=== PATIENT | male | born 1990 | race Native Hawaiian/Other Pacific Islander ===

== ENCOUNTER 2024-08-19 14:16 | Outpatient (AMB) | payer MEDICAID, SELFPAY ==
--- NOTE | 2024-08-19 14:24 | MHC.OFFVIS ---
Vital Signs 08/19/24 14:25 Height 6 ft Intake Visit Reasons: f/u Allergies Penicillins (PENICILLINS) Allergy (Unknown, Unverified 08/19/24 14:27) RASH Medication List - Last Reconciled 08/19/24 by Yuridia Maldonado CNP clonidine HCl 0.1 mg PO BID PRN famotidine 40 mg PO BEDTIME fluoxetine 10 mg PO QAM fluoxetine 40 mg PO DAILY meclizine 12.5 mg PO Q12H PRN omeprazole 40 mg PO QAM propranolol 20 mg PO BID HPI Comments Details: 34 yo man with Tourette syndrome and basilar migraine. He was here because his therapist (Teagan) from [employer] ([phone]: [phone]) wanted to have a consultation and scheduled this appointment. He did not let me know this was the reason for the appointment until it was the end of his appointment. I tried to called Teagan and it went to [employer]. She called the patient back on his cell phone a few minutes later. She has been working with him for over 2 years for anxiety, depression, and PTSD. He said he felt symptoms could be in his head, but could not describe this further. He was dealing with ongoing stress related to health, most recently related to GI issues and was following with GI for weight loss over period of 7 months. He was started on new medication by GI about 2 weeks ago for possible Crohn's, but did not remember the name. Teagan was questioning possibility of functional neurological disorder. Migraines were much better since increasing dose of propranolol. Headaches were less frequent and less severe. Dizziness was also better and was not happening as often. He had some mild dizziness and feeling of motion sickness yesterday after driving with his father. Sleep was okay. He was following with GI and was working with psychiatrist and therapist. [facility] Medical History (Updated 08/19/24 @ 14:33 by Yuridia Maldonado CNP) Orozco's esophagus Hernia Basilar migraine Depression Anxiety Tourette syndrome Review of Systems Const Denies chills, Denies daytime sleepiness, Denies difficulty sleeping, Denies fatigue, Denies fever(s), Denies frequent falls, Reports headache(s), Denies increased appetite, Denies poor appetite, Denies snoring, Denies weakness, Denies weight gain and Denies weight loss Eyes Denies loss of vision ENT Reports vertigo, Denies dizziness and Reports headache(s) Card Denies chest pain at rest, Denies chest pain with activity, Denies leg edema and Denies palpitations Resp Denies snoring GI Denies constipation, Denies heartburn, Denies diarrhea and Denies nausea Denies urinary frequency, Denies urinary incontinence and Denies urinary urgency Musc Denies abnormal gait, Denies numbness and Denies tingling Skin/Breast Denies dry skin and Denies rash Neuro Denies Abnormal speech present, Denies abnormal gait, Reports vertigo, Denies dizziness, Denies frequent falls, Reports headache(s), Denies lack of coordination, Denies loss of vision, Denies memory loss, Denies numbness, Denies restless legs, Denies seizure-like activity, Denies tingling, Denies paresthesias, Denies tremor(s) and Denies weakness Psych Reports anxiety, Reports depression, Denies auditory hallucinations, Denies memory loss, Denies visual hallucinations and Denies suicidal ideation Endo Denies fatigue and Denies palpitations Physical Exam Const Other: General Appearance:? normal, in no acute distress. Skin:? no rashes, no significant birthmarks. Heart:? S1, S2 normal, no murmurs. Lungs:? clear anteriorly and posteriorly. Extremities:? no edema. Psych:? alert, oriented, cognitive function intact, cooperative with exam. Neuro Other: Mental Status:?Normal attention, orientation, memory and affect.? Cranial Nerves:?Pupils are equal, round and reactive to light. External occular muscles are intact. Visual castro are full. Face is symmetrical. Facial sensations are normal. Tongue is midline. Palate elevates symmetrically. Shoulder shrugging is normal. Hearing to bedside conversation is normal. Motor Examination:?Normal muscle tone, bulk and strength,?Deep tendon reflexes are 2+,?Plantars are flexor.? Sensory Exam:?....? Coordination:?No ataxia,?no titubation.? Gait Exam: Within normal limits. Cerebellar Signs:?[id number] and [id number] is normal.? Extrapyramidal System:?No tremor, rigidity with normal facial expressions.? Pronator Drift:?Not present.? Involuntary Movements:?No tremors seen.?Few facial tics noted. Speech:?Normal.? Speech: No Abnormal speech present Assessment & Plan Assessment & Plan (1) Basilar migraine: Code(s): G43.109 - Migraine with aura, not intractable, without status migrainosus Category: Medical Plan: Continue propranolol 20mg 1 tablet twice a day Continue meclizine 12.5mg 1 tablet twice a day as needed for dizziness He was able to connect with his therapist (Teagan) of 2 years on his cell phone and she was on speaker phone for part of the visit. They were educated on this condition, its symptoms, and treatment. Symptoms had improved with medication and medication was continued. Stress can be trigger for migraine, and migraine it self can contribute to stress. He was advised to continue to work with therapist and practice stress management techniques. (2) Tourette syndrome: Code(s): F95.2 - Tourette's disorder Category: Medical Plan: . Plan . Coding Level of Care Code Est Pt Level 5 (33939) Diagnoses Basilar migraine G43.109 Tourette syndrome F95.2
--- OUTSIDE RECORDS SUMMARY | 2024-08-19 14:42 | XMS_ITS | Data Portability ---
Author Organization [facility], Main Office Address [address] [place] [address] Care Team Providers Care Occ Therapist Name Role Phone TELLO FRANKEL [facility] Referring Provider SUNDAR VALENZUELA Referring Provider [phone] DONAVON VILLAFUERTE Referring Provider ERICA CHAUDHARY Referring Provider [phone] SNEHA MUELLER Referring Provider [phone] JUAREZ GRIFFIN Referring Provider [phone] ALEXSANDER PLASENCIA Referring Provider [phone] LAVELL JIMENEZ Referring Provider MEENAKSHI THOMPSON Referring Provider [phone] Assessment No assessment recorded. Plan of Treatment Reminders Order Date Submit Date Provider Last Modified By Organization Details Last Modified Time Details Appointments None recorde d. Lab amylase + lipase, serum 2023 024 PRASHANT [facility] (Centralized Electronic Ordering - All Locations), Patient Can Go To The Location Of Their Choice, [address] 4 06:08:32 CBC w/ auto diff 2023 024 PRASHANT [facility], [address], [place], [address], 4 10:07:08 hepatic functio n panel, serum 2023 024 PRASHANT [facility], [address], [place], [address], 4 10:07:09 CMP, serum or plasma 2022 023 [facility], [address] [facility], [place], [address], 3 11:07:31 hepatit is C virus Ab, serum 2022 023 PRASHANT [facility], [address] [facility], [address], [place], [address], 3 13:09:45 Referral gastroe nterolo gist referra l - Six + months of midepig astric pain. Normal labs. Little help from PPI. 2023 PRASHANT Bowman MD, [address] [place], [address], 5 11:01:[address] [facility] [address] referra l - Recurre nt frontal and maxilla ry sinus pain. Not helped much by flonase and clariti n. [address] , [facility] [address], [place], [address], 4 09:08:42 Procedures None recorde d. Surgeries None recorde d. Imaging XR, sinuses , paranas al, less than 3 view - Recurre nt maxilla ry and frontal sinus pain not helped by flonase and clariti n. R/o obstruc tion 2022 023 [facility] [address], [place], [address], 3 13:20:12 Medication Orders esomepr azole magnesi um 40 mg capsule ,delaye d release 2023 024 [facility], [address] [place], [address], 14:40:51 omepraz ole 40 mg capsule ,delaye d release 2023 024 acennerazzo [facility], [address] [place], [address], 09:29:50 omepraz ole 40 mg capsule ,delaye d release 2023 024 PRASHANT [facility], [address] [place], [address], 13:13:48 Patient TargetsNo targets recorded. Patient Instructions Encounter Date Encounter Id Patient Instructions Last Modified By Organization Details Last Modified Time 12/06/2022 [id number] chronic sinusiti s: care instructions [email or web address] Not available 12/06/2022 10:39:44 03/22/2023 [id number] benign paroxysma l positional vertigo (bppv): care instructions pmadden Not available 03/22/2023 13:38:03 Medications (OTC , herbal therapies, supplements) reviewed and reconciled with patient and or caregiver, including potential side effects, drug interactions, instructions, and the consequences of not taking medication. Reviewed potential barriers to medication adherence, such as side effects from medication or cost of medication. 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 Not helped much by flonase and claritin. 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 Normal labs. Little help from PPI. Referring Physician: Tello Frankel, [facility], Encounter Date: 09/26/2023 Results Created Date Observation Date Name Description Value Unit Range Abnormal Flag Note LastModifiedBy Organization Detail LastModifiedTime 11/18/1911/20/2022 ALLER GEN, MOLD PANEL cladosporium herbarum <0.10 Refer ence range : Class 0 Unit: kU/L Not Available [facility] (Centralized Electronic Ordering - All Locations) Patient Can Go To The Location Of Their Choice, 11/20/2022 16:06:30 11/18/1911/20/2022 ALLER GEN, MOLD PANEL aspergillus fumigatus <0.10 Refer ence range : Class 0 Unit: kU/L Not Available [facility] (Centralized Electronic Ordering - All Locations) Patient Can Go To The Location Of Their Choice, 11/20/2022 16:06:30 11/18/1911/20/2022 ALLER GEN, MOLD PANEL mucor racemosus <0.10 Refer ence range : Class 0 Unit: kU/L Not Available [facility] (Centralized Electronic Ordering - All Locations) Patient Can Go To The Location Of Their Choice, 11/20/2022 16:06:30 11/18/1911/20/2022 ALLER GEN, MOLD PANEL ed albicans <0.10 Refer ence range : Class 0 Unit: kU/L Not Available [facility] (Centralized Electronic Ordering - All Locations) Patient Can Go To The Location Of Their Choice, 11/20/2022 16:06:30 11/18/1911/20/2022 ALLER GEN, MOLD PANEL alternaria tenuis <0.10 Refer ence range : Class 0 Unit: kU/L Not Available [facility] (Centralized Electronic Ordering - All Locations) Patient Can Go To The Location Of Their Choice, 11/20/2022 16:06:30 11/18/1911/20/2022 ALLER GEN, MOLD PANEL class description Commen t (NOTE ) Level s of Speci fic IgE Class Descr iptio n of Class ----- ----- ----- ----- ----- -- ----- ----- ----- ----- ----- < 0.10 0 Negat dc 0.10 - 0.31 0/I Equiv ocal/ Low 0.32 - 0.55 I Low 0.56 - 1.40 II Moder ate 1.41 - 3.90 III High 3.91 - 19.00 IV Very High 19.01 - 100.0 0 V Very High >100. 00 Very High Test perfo rmed by [facility], [address] [place] [address] Not Available [facility] (Centralized Electronic Ordering - All Locations) Patient Can Go To The Location Of Their Choice, [id number] 11/20/2022 16:06:30 01/20/2001/19/2023 COMPR EHENS DC METAB OLIC PANL glucose 81 mg/dL (70-99 ) Not Available [facility] (Centralized Electronic Ordering - All Locations) Patient Can Go To The Location Of Their Choice, [id number] 01/19/2023 11:07:31 01/20/20 23 01/19/2023 COMPR EHENS DC METAB OLIC PANL BUN 17 mg/dL (6-20) Not Available [facility] ([facility]ized [facility] Ordering - All Locations) Patient Can Go To The Location Of Their Choice, [id number] 01/19/2023 11:07:31 01/20/20 23 01/19/2023 COMPR EHENS DC METAB OLIC PANL creatinine 1.1 mg/dL (0.7-1 .2) Not Available [facility] (Centralized Electronic Ordering - All Locations) Patient Can Go To The Location Of Their Choice, [id number] 01/19/2023 11:07:31 01/20/20 23 01/19/2023 COMPR EHENS DC METAB OLIC PANL sodium 139 mmol/ L (133-1 45) Not Available [facility] (Centralized Electronic Ordering - All Locations) Patient Can Go To The Location Of Their Choice, [id number] 01/19/2023 11:07:31 01/20/20 23 01/19/2023 COMPR EHENS DC METAB OLIC PANL potassium 4.7 mmol/ L (3.6-5 .2) Not Available [facility] (Centralized Electronic Ordering - All Locations) Patient Can Go To The Location Of Their Choice, [id number] 01/19/2023 11:07:31 01/20/2001/19/2023 COMPR EHENS DC METAB OLIC PANL chloride 102 mmol/ L (98-10 7) Not Available [facility] ([facility]ized Electronic Ordering - All Locations) Patient Can Go To The Location Of Their Choice, [id number] 01/19/2023 11:07:31 01/20/2001/19/2023 COMPR EHENS DC METAB OLIC PANL bicarbonate 29 mmol/ L (22-29 ) Not Available [facility] (Centralized Electronic Ordering - All Locations) Patient Can Go To The Location Of Their Choice, 01/19/2023 11:07:31 01/20/2001/19/2023 COMPR EHENS DC METAB OLIC PANL anion gap 8 (4-17) Not Available [facility] ([facility]ized Electronic Ordering - All Locations) Patient Can Go To The Location Of Their Choice, [id number] 01/19/2023 11:07:31 01/20/2001/19/2023 COMPR EHENS DC METAB OLIC PANL albumin 4.6 gm/dL (3.4-4 .8) Not Available [facility] ([facility]ized Electronic Ordering - All Locations) Patient Can Go To The Location Of Their Choice, [id number] 01/19/2023 11:07:31 01/20/2001/19/2023 COMPR EHENS DC METAB OLIC PANL calcium 9.5 mg/dL (8.6-1 0.5) Not Available [facility] ([facility]ized [facility] Ordering - All Locations) Patient Can Go To The Location Of Their Choice, 01/19/2023 11:07:31 01/20/2001/19/2023 COMPR EHENS DC METAB OLIC PANL bilirubin,to izabela 0.4 mg/dL (0-1.2 ) Not Available [facility] ([facility]ized Electronic Ordering - All Locations) Patient Can Go To The Location Of Their Choice, 01/19/2023 11:07:31 01/20/2001/19/2023 COMPR EHENS DC METAB OLIC PANL total protein 6.8 gm/dL (6.2-8 .2) Not Available [facility] ([facility] Ordering - All Locations) Patient Can Go To The Location Of Their Choice, [id number] 01/19/2023 11:07:31 01/20/20 23 01/19/2023 COMPR EHENS DC METAB OLIC PANL Ag ratio 2.1 Not Available [facility] ([facility]ized Electronic Ordering - All Locations) Patient Can Go To The Location Of Their Choice, [id number] 01/19/2023 11:07:31 01/20/20 23 01/19/2023 COMPR EHENS DC METAB OLIC PANL AST 18 U/L (0-40) Not Available [facility] ([facility] Ordering - All Locations) Patient Can Go To The Location Of Their Choice, [id number] 01/19/2023 11:07:31 01/20/20 23 01/19/2023 COMPR EHENS DC METAB OLIC PANL alk phos 63 U/L (40-12 9) Not Available [facility] ([facility] Ordering - All Locations) Patient Can Go To The Location Of Their Choice, [id number] 01/19/2023 11:07:31 01/20/20 23 01/19/2023 COMPR EHENS DC METAB OLIC PANL ALT 28 U/L (0-41) Not Available [facility] ([facility]ized [facility] Ordering - All Locations) Patient Can Go To The Location Of Their Choice, [id number] 01/19/2023 11:07:31 01/20/20 23 01/19/2023 COMPR EHENS DC METAB OLIC PANL estimated GFR creatinine 88 mL/mi n/1.7 3_M2 Creat inine based estim ated glome rular filtr ation (eGFR ) in adult s is calcu lated using the Natio nal Kidne y Found ation recom sharmila d 2020 CKD-E PI equat ion. Estim ates GFR from serum creat inine , age and sex. Not Available [facility] (Centralized Electronic Ordering - All Locations) Patient Can Go To The Location Of Their Choice, [id number] 01/19/2023 11:07:31 01/20/20 23 01/20/2023 LYME AB W/REF MK lyme Ab w/reflex (neg) NEGAT DC NO ANTIB NANI TO BORRE LLIA BURGD ORFER I DETEC ANNABELLA. PATIE NTS IN EARLY STAGE S OF INFEC TION OR WHO WERE GIVEN EARLY ANTIB IOTIC TREAT MENT MAY NOT PRODU CE DETEC TABLE LEVEL S OF ANTIB NANI. THESE PATIE NTS WOULD BENEF IT FROM REPEA T TESTI NG IN 2 TO 4 WEEKS . Testi ng perfo rmed by the Bio-R ad BioPl ex 2200 multi plex flow immun oassa y syste m Not Available [facility] (Centralized Electronic Ordering - All Locations) Patient Can Go To The Location Of Their Choice, [id number] 01/20/2023 09:34:05 01/20/20 23 01/20/2023 ANTI- NUCLE AR ANTIB NANI SCREE N anti-nuclear antibody screen NEGATI VE (NOTE ) Negat dc <1:80 Borde rline 1:80 Posit dc >1:80 ICAP nomen rufustheather re: AC-0 For more infor jason meneses about Hep-2 cell patte rns use ANApa ttern s.org , the offic ial websi te for the Inter natio nal Conse nsus on Antin uclea r Antib nani (HENRIETTA) Patte rns (ICAP ). Test perfo rmed by [facility], [address], [place] [address] Not Available [facility] (Centralized Electronic Ordering - All Locations) Patient Can Go To The Location Of Their Choice, [id number] 01/20/2023 23:05:54 01/20/20 23 01/21/2023 ANTI- HEPAT ITIS C anti-hepatit is C (neg) Non React dc Refer ence range : Non React dc (NOTE ) HCV antib nani alone does not diffe renti ate betwe en previ ously resol jabari infec tion and activ e infec tion. Equiv ocal and React dc HCV antib nani resul ts shoul d be follo wed up with an HCV RNA test to suppo rt the diagn osis of activ e HCV infec tion. Test perfo rmed by [facility], [address], [place] [address] Not Available [facility] (Centralized Electronic Ordering - All Locations) Patient Can Go To The Location Of Their Choice, [id number] 01/21/2023 13:09:45 08/29/19 24 08/30/2023 CBC WITH DIFFE RENTI AL/PL ATELE T WBC 7.8 x10e3 /uL 3.4-10 .8 Not Available [facility] ([facility]) [address] [facility], [place], [address], 08/30/2023 10:07:08 08/29/19 24 08/30/2023 CBC WITH DIFFE RENTI AL/PL ATELE T RBC 5.35 x10e6 /uL 4.14-5 .80 Not Available [facility] ([facility]) [address] [facility], [place], [address], 08/30/2023 10:07:08 08/29/19 24 08/30/2023 CBC WITH DIFFE RENTI AL/PL ATELE T hemoglobin 16.8 g/dL 13.0-1 7.7 Not Available [facility] ([facility]) [address] [facility], [place], [address], 08/30/2023 10:07:08 08/29/19 24 08/30/2023 CBC WITH DIFFE RENTI AL/PL ATELE T hematocrit 49.3 % 37.5-5 1.0 Not Available [facility] ([facility]) [address] [facility], [place], [address], 08/30/2023 10:07:08 08/29/19 24 08/30/2023 CBC WITH DIFFE RENTI AL/PL ATELE T MCV 92 fL 79-97 Not Available [facility] ([facility]) [address] [facility], [place], [address], 08/30/2023 10:07:08 08/29/19 24 08/30/2023 CBC WITH DIFFE RENTI AL/PL ATELE T MCH 31.4 pg 26.6-3 3.0 Not Available [facility] ([facility]) [address] [facility], [place], [address], 08/30/2023 10:07:08 08/29/19 24 08/30/2023 CBC WITH DIFFE RENTI AL/PL ATELE T MCHC 34.1 g/dL 31.5-3 5.7 Not Available [facility] ([facility]) [address] [facility], [place], [address], 08/30/2023 10:07:08 08/29/19 24 08/30/2023 CBC WITH DIFFE RENTI AL/PL ATELE T RDW 12.9 % 11.6-1 5.4 Not Available [facility] ([facility]) [address] [facility], [place], [address], 08/30/2023 10:07:08 08/29/19 24 08/30/2023 CBC WITH DIFFE RENTI AL/PL ATELE T platelets 254 x10e3 /uL 150-45 0 Not Available [facility] ([facility]) [address] [facility], [place], [address], 08/30/2023 10:07:08 08/29/19 24 08/30/2023 CBC WITH DIFFE RENTI AL/PL ATELE T neutrophils 65 % not estab. Not Available [facility] ([facility]) [address] [facility], [place], [address], 08/30/2023 10:07:08 08/29/19 24 08/30/2023 CBC WITH DIFFE RENTI AL/PL ATELE T lymphs 24 % not estab. Not Available [facility] ([facility]) [address] [facility], [place], [address], 08/30/2023 10:07:08 08/29/19 24 08/30/2023 CBC WITH DIFFE RENTI AL/PL ATELE T monocytes 8 % not estab. Not Available [facility] ([facility]) [address] [facility], [place], [address], 08/30/2023 10:07:08 08/29/19 24 08/30/2023 CBC WITH DIFFE RENTI AL/PL ATELE T eos 2 % not estab. Not Available [facility] ([facility]) [address] [facility], [place], [address], 08/30/2023 10:07:08 08/29/19 24 08/30/2023 CBC WITH DIFFE RENTI AL/PL ATELE T basos 1 % not estab. Not Available [facility] ([facility]) [address] [place], [address], 08/30/2023 10:07:08 08/29/19 24 08/30/2023 CBC WITH DIFFE RENTI AL/PL ATELE T immature cells INVESTOR RELATIONS COORDINATOR Not Available [facility] ([facility]) [address] [place], [address], 08/30/2023 10:07:08 08/29/19 24 08/30/2023 CBC WITH DIFFE RENTI AL/PL ATELE T neutrophils (absolute) 5.0 x10e3 /uL 1.4-7. 0 Not Available [facility] ([facility]) [address] [place], [address], 08/30/2023 10:07:08 08/29/19 24 08/30/2023 CBC WITH DIFFE RENTI AL/PL ATELE T lymphs (absolute) 1.9 x10e3 /uL 0.7-3. 1 Not Available [facility] ([facility]) [address] [place], [address], 08/30/2023 10:07:08 08/29/19 24 08/30/2023 CBC WITH DIFFE RENTI AL/PL ATELE T monocytes(ab solute) 0.7 x10e3 /uL 0.1-0. 9 Not Available [facility] ([facility]) [address] [place], [address], 08/30/2023 10:07:08 08/29/19 24 08/30/2023 CBC WITH DIFFE RENTI AL/PL ATELE T eos (absolute) 0.2 x10e3 /uL 0.0-0. 4 Not Available [facility] ([facility]) [address] [place], [address], 08/30/2023 10:07:08 08/29/19 24 08/30/2023 CBC WITH DIFFE RENTI AL/PL ATELE T baso (absolute) 0.1 x10e3 /uL 0.0-0. 2 Not Available [facility] ([facility]) [address], [place], [address], 08/30/2023 10:07:08 08/29/19 24 08/30/2023 CBC WITH DIFFE RENTI AL/PL ATELE T immature granulocytes 0 % not estab. Not Available [facility] ([facility]) [address] [facility], [place], [address], 08/30/2023 10:07:08 08/29/19 24 08/30/2023 CBC WITH DIFFE RENTI AL/PL ATELE T immature grans (abs) 0.0 x10e3 /uL 0.0-0. 1 Not Available [facility] ([facility]) [address], [place], [address], 08/30/2023 10:07:08 08/29/19 24 08/30/2023 CBC WITH DIFFE RENTI AL/PL ATELE T NRBC INVESTOR RELATIONS COORDINATOR Not Available [facility] ([facility]) [address] [facility], [place], [address], 08/30/2023 10:07:08 08/29/19 24 08/30/2023 CBC WITH DIFFE RENTI AL/PL ATELE T hematology comments: INVESTOR RELATIONS COORDINATOR Not Available [facility] ([facility]) [address] [facility], [place], [address], 08/30/2023 10:07:08 08/29/19 24 08/30/2023 HEPAT IC FUNCT ION PANEL (7) protein, total 6.9 g/dL 6.0-8. 5 Not Available [facility] ([facility]) [address] [facility], [place], [address], 08/30/2023 10:07:09 08/29/19 24 08/30/2023 HEPAT IC FUNCT ION PANEL (7) albumin 4.5 g/dL 4.1-5. 1 Not Available [facility] ([facility]) [address] [facility], [place], [address], 08/30/2023 10:07:09 08/29/19 24 08/30/2023 HEPAT IC FUNCT ION PANEL (7) bilirubin, total 0.5 mg/dL 0.0-1. 2 Not Available [facility] ([facility]) [address] [facility], [place], [address], 08/30/2023 10:07:09 08/29/19 24 08/30/2023 HEPAT IC FUNCT ION PANEL (7) bilirubin, direct 0.12 mg/dL 0.00-0 .40 Not Available [facility] ([facility]) [address] [facility], [place], [address], 08/30/2023 10:07:09 08/29/19 24 08/30/2023 HEPAT IC FUNCT ION PANEL (7) alkaline phosphatase 69 IU/L 44-121 Not Available [facility] ([facility]) [address] [facility], [place], [address], 08/30/2023 10:07:09 08/29/19 24 08/30/2023 HEPAT IC FUNCT ION PANEL (7) AST (SGOT) 21 IU/L 0-40 Not Available [facility] ([facility]) [address] [facility], [address], 08/30/2023 10:07:09 08/29/19 24 08/30/2023 HEPAT IC FUNCT ION PANEL (7) ALT (SGPT) 36 IU/L 0-44 Not Available [facility] ([facility]) [address] [facility], [place], [address], 08/30/2023 10:07:09 09/26/19 24 09/26/2023 JANET+L IPASE amylase 64 U/L 31-110 normal Not Available [facility] ([facility]) [address] [facility], [place], [address], 09/27/2023 06:08:32 09/26/19 24 09/26/2023 JANET+L IPASE lipase 37 U/L 13-78 normal Not Available [facility] ([facility]) [address] [facility], [place], [address], 09/27/2023 06:08:32 05/09/19 25 05/08/2024 HbA1c (hemo globi n A1c), blood HbA1C 5.2 Not Available [facility]Out[facility]) [address] [place] [address], [address], 05/08/2024 18:53:30 05/25/19 25 05/24/2024 CBC WITH AUTO DIFFE RENTI AL WBC 5.4 K/mcL 4.8-10 .8 Not Available [address], [address], 05/24/2024 09:14:50 05/25/19 25 05/24/2024 CBC WITH AUTO DIFFE RENTI AL RBC 5.60 M/mcL 4.50-5 .50 high Not Available [address], [address], 05/24/2024 09:14:50 05/25/19 25 05/24/2024 CBC WITH AUTO DIFFE RENTI AL hemoglobin 17.5 g/dL 13.5-1 7.5 Not Available [address], [address], 05/24/2024 09:14:50 05/25/19 25 05/24/2024 CBC WITH AUTO DIFFE RENTI AL hematocrit 49.7 % 42.0-5 4.0 Not Available [address], [address], 05/24/2024 09:14:50 05/25/19 25 05/24/2024 CBC WITH AUTO DIFFE RENTI AL MCV 88.8 fL 79.0-9 8.0 Not Available [address], [address], 05/24/2024 09:14:50 05/25/19 25 05/24/2024 CBC WITH AUTO DIFFE RENTI AL MCH 31.3 pcg 27.0-3 2.0 Not Available [address], [address], 05/24/2024 09:14:50 05/25/19 25 05/24/2024 CBC WITH AUTO DIFFE RENTI AL MCHC 35.2 g/dL 32.0-3 7.0 Not Available [address], [address], 05/24/2024 09:14:50 05/25/19 25 05/24/2024 CBC WITH AUTO DIFFE RENTI AL RDW 12.3 % 11.0-1 5.0 Not Available [address], [address], 05/24/2024 09:14:50 05/25/19 25 05/24/2024 CBC WITH AUTO DIFFE RENTI AL platelets 202 K/mcL 130-40 0 Not Available [address], [address], 05/24/2024 09:14:50 05/25/19 25 05/24/2024 CBC WITH AUTO DIFFE RENTI AL MPV 10.0 fL 7.0-11 .0 Not Available [address], [address], 05/24/2024 09:14:50 05/25/19 25 05/24/2024 CBC WITH AUTO DIFFE RENTI AL NRBC 0.0 % <1.0 Not Available [facility], [address], 05/24/2024 09:14:50 05/25/19 25 05/24/2024 CBC WITH AUTO DIFFE RENTI AL NRBC absolute 0.00 K/mcL <0.10 Not Available [address], [address], 05/24/2024 09:14:50 05/25/19 25 05/24/2024 CBC WITH AUTO DIFFE RENTI AL neutrophils relative 53.9 % Not Available [address], [address], 05/24/2024 09:14:50 05/25/19 25 05/24/2024 CBC WITH AUTO DIFFE RENTI AL lymphocytes relative 31.9 % Not Available [address], [address], 05/24/2024 09:14:50 05/25/19 25 05/24/2024 CBC WITH AUTO DIFFE RENTI AL monocytes relative 8.7 % Not Available [address], [address], 05/24/2024 09:14:50 05/25/1905/24/2024 CBC WITH AUTO DIFFE RENTI AL eosinophils relative 3.5 % Not Available [address], [address], 05/24/2024 09:14:50 05/25/1905/24/2024 CBC WITH AUTO DIFFE RENTI AL basophils relative 1.8 % Not Available [address], [address], 05/24/2024 09:14:50 05/25/19 25 05/24/2024 CBC WITH AUTO DIFFE RENTI AL immature granulocytes relative 0.2 % Not Available [address], [address], 05/24/2024 09:14:50 05/25/19 25 05/24/2024 CBC WITH AUTO DIFFE RENTI AL neutrophils absolute 2.92 K/mcL 1.50-7 .00 Not Available [address], [address], 05/24/2024 09:14:50 05/25/19 25 05/24/2024 CBC WITH AUTO DIFFE RENTI AL lymphocytes absolute 1.73 K/mcL 1.00-5 .00 Not Available [address], [address], 05/24/2024 09:14:50 05/25/19 25 05/24/2024 CBC WITH AUTO DIFFE RENTI AL monocytes absolute 0.47 K/mcL 0.20-1 .00 Not Available [address], [address], 05/24/2024 09:14:50 05/25/19 25 05/24/2024 CBC WITH AUTO DIFFE RENTI AL eosinophils absolute 0.19 K/mcL 0.00-0 .50 Not Available [address], [address], 05/24/2024 09:14:50 05/25/19 25 05/24/2024 CBC WITH AUTO DIFFE RENTI AL basophils absolute 0.10 K/mcL 0.00-0 .20 Not Available [address], [address], 05/24/2024 09:14:50 05/25/19 25 05/24/2024 CBC WITH AUTO DIFFE RENTI AL immature granulocytes absolute 0.01 K/mcL 0.00-0 .03 Not Available [address], [address], 05/24/2024 09:14:50 05/25/19 25 05/24/2024 CBC WITH AUTO DIFFE RENTI AL note See Report [facility], [address], [address] [place] [address], [place] [address] Not Available [address], [address], 05/24/2024 09:14:50 05/25/19 25 05/24/2024 COMPR EHENS DC METAB OLIC PANEL sodium 141 mmol/ L 133-14 5 Not Available [address], [address], 05/24/2024 09:49:58 05/25/19 25 05/24/2024 COMPR EHENS DC METAB OLIC PANEL potassium 3.9 mmol/ L 3.5-5. 5 Not Available [address], [address], 05/24/2024 09:49:58 05/25/19 25 05/24/2024 COMPR EHENS DC METAB OLIC PANEL chloride 106 mmol/ L 96-110 Not Available [address], [address], 05/24/2024 09:49:58 05/25/19 25 05/24/2024 COMPR EHENS DC METAB OLIC PANEL CO2 31 mmol/ L 21-32 Not Available [address], [address], 05/24/2024 09:49:58 05/25/19 25 05/24/2024 COMPR EHENS CD METAB OLIC PANEL anion gap 4 3-11 Not Available [address], [address], 05/24/2024 09:49:58 05/25/19 25 05/24/2024 COMPR EHENS DC METAB OLIC PANEL glucose 82 mg/dL 70-100 Not Available [address], [address], 05/24/2024 09:49:58 05/25/19 25 05/24/2024 COMPR EHENS DC METAB OLIC PANEL BUN 13 mg/dL 5-25 Not Available [address], [address], 05/24/2024 09:49:58 05/25/19 25 05/24/2024 COMPR EHENS DC METAB OLIC PANEL creatinine 1.11 mg/dL 0.70-1 .30 Not Available [address], [address], 05/24/2024 09:49:58 05/25/19 25 05/24/2024 COMPR EHENS DC METAB OLIC PANEL eGFR 88 mL/mi n/1.7 3m2 >=60 Calcu latio n based on the Chron ic Kidne y Disea se Epide miolo gy Colla borat ion (CKD- EPI) equat ion refit witho ut adjus tment for race. Not Available [address], [address], 05/24/2024 09:49:58 05/25/19 25 05/24/2024 COMPR EHENS DC METAB OLIC PANEL BUN/creatini ne ratio 11.7 Not Available [address], [address], 05/24/2024 09:49:58 05/25/19 25 05/24/2024 COMPR EHENS DC METAB OLIC PANEL calcium 9.5 mg/dL 8.5-10 .5 Not Available [address], [address], 05/24/2024 09:49:58 05/25/19 25 05/24/2024 COMPR EHENS DC METAB OLIC PANEL AST (SGOT) 18 unit/ L 10-42 Not Available [address], [address], 05/24/2024 09:49:58 05/25/19 25 05/24/2024 COMPR EHENS DC METAB OLIC PANEL ALT (SGPT) 37 unit/ L 10-60 Not Available [address], [address], 05/24/2024 09:49:58 05/25/19 25 05/24/2024 COMPR EHENS DC METAB OLIC PANEL alkaline phosphatase 86 unit/ L 42-121 Not Available [address], [address], 05/24/2024 09:49:58 05/25/1905/24/2024 COMPR EHENS DC METAB OLIC PANEL total protein 7.1 g/dL 6.0-8. 0 Not Available [address], [address], 05/24/2024 09:49:58 05/25/19 25 05/24/2024 COMPR EHENS DC METAB OLIC PANEL albumin 4.1 g/dL 3.2-5. 0 Not Available [address], [address], 05/24/2024 09:49:58 05/25/19 25 05/24/2024 COMPR EHENS DC METAB OLIC PANEL total bilirubin 1.0 mg/dL 0.0-1. 4 Not Available [address], [address], 05/24/2024 09:49:58 05/25/1905/24/2024 COMPR EHENS DC METAB OLIC PANEL note See Report [facility], [address], [address] [place] [address], [place] [facility] [place] [address] Not Available [address], [address], 05/24/2024 09:49:58 05/25/19 25 05/24/2024 AMYLA SE amylase 63 unit/ L 25-115 Not Available [address], [address], 05/24/2024 09:50:10 05/25/19 25 05/24/2024 AMYLA SE note See Report [facility], [address], [place], [place] [facility] [place] [address] Not Available [address], [address], 05/24/2024 09:50:10 05/25/19 25 05/24/2024 IMMUN OGLOB ULIN IGA IgA 182 mg/dL 61-348 Not Available [address], [address], 05/24/2024 09:50:18 05/25/19 25 05/24/2024 IMMUN OGLOB ULIN IGA note See Report [facility] Fr[facility] al [facility], [address], [place], [facility] [place] [address] Not Available [address], [address], 05/24/2024 09:50:18 05/25/19 25 05/24/2024 THYRO ID STIMU LATIN G HORMO NE TSH 2.85 mciu/ mL 0.40-4 .00 Not Available [address], [address], 05/24/2024 10:50:42 05/25/19 25 05/24/2024 THYRO ID STIMU LATIN G HORMO NE note See Report [facility], [address], [place] [address], [facility] [place] [address] Not Available [address], [address], 05/24/2024 10:50:42 05/25/19 25 05/24/2024 TISSU E TRANS GLUTA CHANCE E, IGA tissue transglutami nase Ab, IgA quant 2 unit/ mL <4 Not Available [address], [address], 05/29/2024 12:18:35 05/25/19 25 05/24/2024 TISSU E TRANS GLUTA CHANCE E, IGA tissue transglutami nase Ab, IgA Negati ve negati ve Not Available [address], [address], 05/29/2024 12:18:35 05/25/19 25 05/24/2024 TISSU E TRANS GLUTA CHANCE E, IGA note See Report [facility], [address], [address] [address], [place] [address] Not Available [address], [address], 05/29/2024 12:18:35 01/20/20 23 01/19/2023 XR, sinus es Sinuse s Comp Min 3 Views Reason : recurr ent maxill juan and fronta l sinus pain not helped by flonas e and clarti n; Clinic al Questi on(s): OBSTRU CTION COMPAR SHAHIDA: None FINDIN GS: Clear sinuse s. No fractu res. IMPRES BERNARDO: Normal . WSN: [id number] Orderi ng Physic fauzia: Tello Anaya Dictat ed By: Carlos Manuel Mir MD Dictat ed Date/T sharla: 10:03 a Review ed By: Carlos Manuel Mir MD Signed By: Carlos Manuel Mir MD Signed Date/T sharla: 10:03 am Transc ribed By: DANNY Transc ribed Date/T sharla: 9:55 am Patien t Class: Outpat ient [email or web address] [facility] (Outpt Imaging) [address] [facility], [place], [address], 02/08/2023 07:49:39 12/22/19 24 12/22/2023 US, abdom en No observ ation record ed. [email or web address] [facility] [address] , [place], [address], 12/29/2023 09:49:05 06/20/19 25 06/19/2024 CT, abdom en + pelvi s, w/ contr ast See Note [facility] , a member of [employer] [facility] t Name: KARTHIK BORJAS Date of : 1989 Reason for Exam: LUQ pain, uninte ntiona l wt loss Exam Date: 2024 [id number] EST Report Status : Final Orderi ng Provid er: ABEL DOYLE PCP: TELLO FORD PROCED URE: Contra st enhanc ed CT of the abdome n and pelvis . HISTOR Y: LUQ pain, uninte ntiona l wt loss. COMPAR SHAHIDA: None. TECHNI QUE: Contra st-enh anced CT of the abdome n and pelvis with hayward l and sagitt al reform ats. IV contra st dose: 90 mL ISOVUE -370. Dose length produc t: 702 mGy-cm . FINDIN GS: Lung bases: Normal . Cardia c: Normal . Liver: There is a very small low-at tenuat ion lesion in the right lobe near the dome, probab ly a cyst but too small for defini tive charac teriza tion. Portal veins are patent . Biliar y: Normal gallbl adder and biliar y tree. Pancre as: Normal . Spleen : Small low-at tenuat ion lesion along the anteri or superi or spleen , probab ly a cyst. Adrena l glands : Normal . Kidney s: Normal . Normal appear ance of the ureter s. Retrop eriton eum: No mass or adenop athy. Abdomi nal vascul ature: Retroa ortic left renal vein. Bowel/ mesent melony: No obstru ction or adenop athy. No mass or ascite s. Abdomi nal wall: There is an oval low-at tenuat ion 3.3 cm ray l diamet er lesion in the subcut aneous fat in the subcut aneous fat just superi or to the right iliac wing, likely a large epider mal inclus ion cyst. Mild lipoma tous hypert rophy of the right inguin al canal. Pelvic nodes: No adenop athy. Pelvic organs : Normal . Bones: Mild degene rative change s of the spine. IMPRES BERNARDO: No acute findin gs in the abdome n and pelvis . No findin gs to sugges t an etiolo gy for uninte ntiona l weight loss or left upper quadra nt pain. ------ -- FINAL REPORT ------ -- Dictat ed By: Kaz Estrada Dictat ed Date: 2024 09:15 ET Assign ed Physic fauzia: Kaz Estrada Review ed and Electr onical ly Signed By: Kaz Estrada Signed Date: 2024 10:07 ET Workst ation ID: [id number] Transc ribed By: Self Edit Transc ribed Date: 2024 09:15 ET [address]is [address] [place], [address], 06/19/2024 12:37:02 Result Notes Documentation Provider Name and Address Organization Details Recorded Time Xr, Sinuses : Sinuses Comp Min 3 Views Reason: recurrent maxillary and frontal sinus pain not helped by flonase and clartin; Clinical Question(s): OBSTRUCTION COMPARISON: None FINDINGS: Clear sinuses. No fractures. IMPRESSION: Normal. WSN: [id number] Ordering Physician: Tello Frankel Dictated By: Carlos Manuel Schilling MD Dictated Date/Time: 01/19/23 10:03 a Reviewed By: Carlos Manuel Schilling MD Signed By: Carlos Manuel Schilling MD Signed Date/Time: 01/19/23 10:03 am Transcribed By: DANNY Transcribed Date/Time: 01/19/23 9:55 am Patient Class: Outpatient [facility] 02/08/2023 07:49:39 Ct, Abdomen + Pelvis, W/ Contrast : See Note [facility], a member of [employer] Patient Name: KARTHIK HOPE Date of : 1990 Reason for Exam: LUQ pain, unintentional wt loss Exam Date: 06/19/2024 [id number] EST Report Status: Final Ordering Provider: ABEL AMADO PCP: TELLO FRANKEL PROCEDURE: Contrast enhanced CT of the abdomen and pelvis. HISTORY: LUQ pain, unintentional wt loss. COMPARISON: None. TECHNIQUE: Contrast-enhanced CT of the abdomen and pelvis with coronal and sagittal reformats. IV contrast dose: 90 mL ISOVUE-370. Dose length product: 702 mGy-cm. FINDINGS: Lung bases: Normal. Cardiac: Normal. Liver: There is a very small low-attenuation lesion in the right lobe near the dome, probably a cyst but too small for definitive characterization. Portal veins are patent. Biliary: Normal gallbladder and biliary tree. Pancreas: Normal. Spleen: Small low-attenuation lesion along the anterior superior spleen, probably a cyst. Adrenal glands: Normal. Kidneys: Normal. Normal appearance of the ureters. Retroperitoneum: No mass or adenopathy. Abdominal vasculature: Retroaortic left renal vein. Bowel/mesentery: No obstruction or adenopathy. No mass or ascites. Abdominal wall: There is an oval low-attenuation 3.3 cm maximal diameter lesion in the subcutaneous fat in the subcutaneous fat just superior to the right iliac wing, likely a large epidermal inclusion cyst. Mild lipomatous hypertrophy of the right inguinal canal. Pelvic nodes: No adenopathy. Pelvic organs: Normal. Bones: Mild degenerative changes of the spine. IMPRESSION: No acute findings in the abdomen and pelvis. No findings to suggest an etiology for unintentional weight loss or left upper quadrant pain. -------- FINAL REPORT -------- Dictated By: Kaz Hood Dictated Date: 06/19/2024 09:15 ET Assigned Physician: Kaz Hood Reviewed and Electronically Signed By: Kaz Hood Signed Date: 06/19/2024 10:07 ET Workstation ID: [id number] Transcribed By: Self Edit Transcribed Date: 06/19/2024 09:15 ET Tello Frankel MD [address] [address], [place], [address], [facility] 06/19/2024 12:37:02 Problems Name Problem SNOMED Code Status Onset Date Resolution Date Notes Provider Name and Address Organization Details Recorded Time Acute pharyngi tis 291009681 Completed 200808/27/2013 RECORDED 05/27/19 09 1:08PM BY RAQUEL HALE, ANNOTATI ON/ADDEN DUM Not Available [facility] 4 13:33:14 Acute sinusiti s 45562788 Completed 200708/27/2013 RESOLVED DATE: 07/24/19 08; RECORDED 07/24/19 08 4:45PM BY TELLO TOVAR MD, ANNOTATI ON/ADDEN DUM Not Available [facility] 4 13:33:14 Patient status finding [id number] Completed 201208/27/2013 RECORDED 10/03/19 13 3:24PM BY TAB ENCISO MA, ANNOTATI ON/ADDEN DUM Not Available [facility] 4 13:33:14 Knee pain Completed 201303/30/2016 RONI Baez [facility] 7 10:41:02 Tobacco dependen ce syndrome 76612283 Completed 201308/27/2013 RECORDED 05/07/19 14 3:52PM BY DUSTIN BARNES MA, ANNOTATI ON/ADDEN DUM Not Available [facility] 4 13:33:14 Influenz a vaccine needed 41190579932 06 Completed 201108/27/2013 RECORDED 11/16/19 12 9:27AM BY DUSTIN BARNES MA, OFFICE VISIT Not Available [facility] 4 13:33:14 Tobacco user 006829661 Completed 201301/14/2014 RECORDED 05/07/19 14 4:03PM BY DUSTIN BARNES MA, OFFICE VISIT Te william MA [facility] 4 09:41:30 History of clinical finding in subject 908607159 Completed 201301/14/2014 RECORDED 05/07/19 14 4:03PM BY DUSTIN BARNES MA, OFFICE VISIT Te william MA [facility] 4 09:31:43 Adult health examinat ion Completed 201208/27/2013 RECORDED 11/29/19 13 1:49PM BY BERNA LOPEZ MA, ANNOTATI ON/ADDEN DUM Not Available [facility] 4 13:33:14 General examinat ion of patient Completed 200708/27/2013 RECORDED 07/24/19 08 4:44PM BY TELLO TOVAR MD, ANNOTATI ON/ADDEN DUM Not Available [facility] 4 13:33:14 Hypothyr oidism 40821014 Completed 201308/27/2013 IMPRESSI ON: MILD ELEVATIO N SO WE WILL CHECK TPO WELL BEFORE DECIDING UPON A COURSE OF ACTION.; RECORDED 05/07/19 14 3:52PM BY DUSTIN BARNES MA, ANNOTATI ON/ADDEN DUM Not Available [facility] 4 13:33:14 Impacted cerumen 96055961 Completed 200808/27/2013 RECORDED 02/27/19 09 2:29PM BY RONI KIDD, ANNOTATI ON/ADDEN DUM Not Available [facility] 4 13:33:14 Malaise and fatigue 026889470 Completed 201108/27/2013 RECORDED 11/01/19 12 9:09AM BY RADHA MARTIN I, ANNOTATI ON/ADDEN DUM Not Available [facility] 4 13:33:15 Migraine 42145867 Completed 201108/27/2013 RECORDED 11/01/19 12 9:09AM BY RADHA MARTIN I, ANNOTATI ON/ADDEN DUM Tello Frankel MD [address] [address], [place], [address] , [facility] 3 13:50:10 Neck pain 57474284 Completed 201208/27/2013 IMPRESSI ON: A COMBO OF WORK LIFTING, WEIGHT LIFTING AND TENSION. TRY TO DECREASE ACTIVITY AND HE WILL TAKE AN NSAID; RECORDED 10/03/19 13 3:25PM BY TAB ENCISO MA, ANNOTATI ON/ADDEN DUM Not Available [facility] 4 13:33:15 Infectiv e otitis externa 10935196 Completed 200808/27/2013 RECORDED 05/27/19 09 1:09PM BY MERARY ORELLANAATI ON/ADDEN DUM Not Available [facility] 4 13:33:15 Pain in eye 53559554 Completed 200708/27/2013 RESOLVED DATE: 07/24/19 08; RECORDED 07/24/19 08 4:44PM BY TELLO TOVAR MD, ANNOTATI ON/ADDEN DUM Not Available [facility] 4 13:33:15 Contact dermatit is due to plants, except food Completed 201208/27/2013 IMPRESSI ON: HE WILL USE OTC MEDS; RECORDED 10/03/19 13 3:24PM BY TAB ENCISO MA, ANNOTATI ON/ADDEN DUM Not Available [facility] 4 13:33:15 Epidermo id cyst of skin 555237034 Completed 201303/30/2016 [facility] 7 10:40:59 Administ ration of diphther ia, pertussi s, and tetanus vaccine Completed 201208/27/2013 RECORDED 11/29/19 13 1:49PM BY BERNA LOPEZ MA, ANNOTATI ON/ADDEN DUM Not Available [facility] 4 13:33:15 Tension- type headache 491695903 Active 2013 Not Available [facility] 3 09:53:21 Venkatesh de la Tourette 's syndrome 5730212 Active 2013 Not Available [facility] 3 09:53:21 Verruca vulgaris 65469258 Completed 201108/27/2013 RECORDED 11/01/19 12 9:09AM BY RADHA MARTIN I, ANNOTATI ON/ADDEN DUM Not Available [facility] 4 13:33:15 Acute pharyngi tis 010298622 Completed 200809/19/2013 RECORDED 05/27/19 09 1:08PM BY MERARY ORELLANAATI ON/ADDEN DUM Not Available [facility] 4 12:04:54 Acute sinusiti s 87971076 Completed 200709/19/2013 RESOLVED DATE: 07/24/19 08; RECORDED 07/24/19 08 4:45PM BY TELLO TOVAR MD, ANNOTATI ON/ADDEN DUM Not Available [facility] 4 12:04:54 Patient status finding 971738360 Completed 201209/19/2013 RECORDED 10/03/19 13 3:24PM BY TAB ENCISO MA, MERARYATI ON/ADDEN DUM Not Available [facility] 4 12:04:54 Tobacco dependen ce syndrome 15841816 Completed 201309/19/2013 RECORDED 05/07/19 14 3:52PM BY DUSTIN BARNES MA, MERARYATI ON/ADDEN DUM Not Available [facility] 4 12:04:54 Influenz a vaccine needed 44250217908 06 Completed 201109/19/2013 RECORDED 11/16/19 12 9:27AM BY DUSTIN BARNES MA, OFFICE VISIT Not Available [facility] 4 12:04:54 Adult health examinat ion Completed 201209/19/2013 RECORDED 11/29/19 13 1:49PM BY BERNA LOPEZ MA, MERARYATI ON/ADDEN DUM Not Available [facility] 4 12:04:54 General examinat ion of patient Completed 200709/19/2013 RECORDED 07/24/19 08 4:44PM BY TELLO TOVAR MD, ANNOTATI ON/ADDEN DUM Not Available [facility] 4 12:04:54 Hypothyr oidism 86469459 Completed 201309/19/2013 IMPRESSI ON: MILD ELEVATIO N SO WE WILL CHECK TPO WELL BEFORE DECIDING UPON A COURSE OF ACTION.; RECORDED 05/07/19 14 3:52PM BY DUSTIN BARNES MA, MESERET ON/ADDEN DUM Not Available [facility] 4 12:04:54 Impacted cerumen 33649081 Completed 200809/19/2013 RECORDED 02/27/19 09 2:29PM BY RONI KIDD, MERARYATI ON/ADDEN DUM Not Available [facility] 4 12:04:54 Malaise and fatigue 575618794 Completed 201109/19/2013 RECORDED 11/01/19 12 9:09AM BY MESERET LAFLEUR ON/ADDEN DUM Not Available [facility] 4 12:04:54 Migraine 17235977 Completed 201109/19/2013 RECORDED 11/01/19 12 9:09AM BY MESERET LAFLEUR ON/ADDEN DUM Tello Frankel MD [address] [facility] [address], [place], [address] , [facility] 3 13:50:10 Neck pain 40248076 Completed 201209/19/2013 IMPRESSI ON: A COMBO OF WORK LIFTING, WEIGHT LIFTING AND TENSION. TRY TO DECREASE ACTIVITY AND HE WILL TAKE AN NSAID; RECORDED 10/03/19 13 3:25PM BY TAB ENCISO MA, ANNOTATI ON/ADDEN DUM Not Available [facility] 4 12:04:54 Infectiv e otitis externa 38637168 Completed 200809/19/2013 RECORDED 05/27/19 09 1:09PM BY MESERET ORELLANA ON/ADDEN DUM Not Available [facility] 4 12:04:55 Pain in eye 76575096 Completed 200709/19/2013 RESOLVED DATE: 07/24/19 08; RECORDED 07/24/19 08 4:44PM BY TELLO TOVAR MD, MESERET ON/ADDEN DUM Not Available [facility] 4 12:04:55 Contact dermatit is due to plants, except food Completed 201209/19/2013 IMPRESSI ON: HE WILL USE OTC MEDS; RECORDED 10/03/19 13 3:24PM BY TAB ENCIOS MA, ANNOTATI ON/ADDEN DUM Not Available [facility] 4 12:04:55 Administ ration of diphther ia, pertussi s, and tetanus vaccine Completed 201209/19/2013 RECORDED 11/29/19 13 1:49PM BY BERNA LOPEZ MA, ANNOTATI ON/ADDEN DUM Not Available [facility] 4 12:04:55 Verruca vulgaris 80872688 Completed 201109/19/2013 RECORDED 11/01/19 12 9:09AM BY RADHA MARTIN I, ANNOTATI ON/ADDEN DUM Not Available [facility] 4 12:04:55 Acute pharyngi tis 553335045 Completed 200809/20/2013 RECORDED 05/27/19 09 1:08PM BY RAQUEL HALE, MERARYATI ON/ADDEN DUM Not Available [facility] 4 03:29:59 Acute sinusiti s 00286996 Completed 200709/20/2013 RESOLVED DATE: 07/24/19 08; RECORDED 07/24/19 08 4:45PM BY TELLO TOVAR MD, ANNOTATI ON/ADDEN DUM Not Available [facility] 4 03:29:59 Patient status finding 349661250 Completed 201209/20/2013 RECORDED 10/03/19 13 3:24PM BY TAB ENCISO MA, ANNOTATI ON/ADDEN DUM Not Available [facility] 4 03:29:59 Tobacco dependen ce syndrome 22198494 Completed 201309/20/2013 RECORDED 05/07/19 14 3:52PM BY DUSTIN BARNES MA, ANNOTATI ON/ADDEN DUM Not Available [facility] 4 03:29:59 Influenz a vaccine needed 26684069295 06 Completed 201109/20/2013 RECORDED 11/16/19 12 9:27AM BY DUSTIN BARNES MA, OFFICE VISIT Not Available [facility] 4 03:29:59 Adult health examinat ion Completed 201209/20/2013 RECORDED 11/29/19 13 1:49PM BY BERNA LOPEZ MA, ANNOTATI ON/ADDEN DUM Not Available [facility] 4 03:29:59 General examinat ion of patient Completed 200709/20/2013 RECORDED 07/24/19 08 4:44PM BY TELLO TOVAR MD, ANNOTATI ON/ADDEN DUM Not Available [facility] 4 03:29:59 Hypothyr oidism 54747659 Completed 201309/20/2013 IMPRESSI ON: MILD ELEVATIO N SO WE WILL CHECK TPO WELL BEFORE DECIDING UPON A COURSE OF ACTION.; RECORDED 05/07/19 14 3:52PM BY DUSTIN BARNES MA, ANNOTATI ON/ADDEN DUM Not Available [facility] 4 03:29:59 Impacted cerumen 94157631 Completed 200809/20/2013 RECORDED 02/27/19 09 2:29PM BY RONI KIDD, ANNOTATI ON/ADDEN DUM Not Available [facility] 4 03:29:59 Malaise and fatigue 981511421 Completed 201109/20/2013 RECORDED 11/01/19 12 9:09AM BY RADHA MARTIN I, ANNOTATI ON/ADDEN DUM Not Available [facility] 4 03:29:59 Migraine 04993825 Completed 201109/20/2013 RECORDED 11/01/19 12 9:09AM BY RADHA MARTIN I, MERARYATI ON/ADDEN DUM Tello Frankel MD [address] [facility] [address], [place], [address] , [facility] 3 13:50:10 Neck pain 95243431 Completed 201209/20/2013 IMPRESSI ON: A COMBO OF WORK LIFTING, WEIGHT LIFTING AND TENSION. TRY TO DECREASE ACTIVITY AND HE WILL TAKE AN NSAID; RECORDED 10/03/19 13 3:25PM BY TAB ENCISO MA, ANNOTATI ON/ADDEN DUM Not Available [facility] 4 03:29:59 Infectiv e otitis externa 03214121 Completed 200809/20/2013 RECORDED 05/27/19 09 1:09PM BY MERARY ORELLANAATI ON/ADDEN DUM Not Available [facility] 4 03:29:59 Pain in eye 08142014 Completed 200709/20/2013 RESOLVED DATE: 06/10/20 08; RECORDED 07/24/19 08 4:44PM BY TELLO TOVAR MD, ANNOTATI ON/ADDEN DUM Not Available [facility] 4 03:29:59 Contact dermatit is due to plants, except food Completed 201209/20/2013 IMPRESSI ON: HE WILL USE OTC MEDS; RECORDED 10/03/19 13 3:24PM BY TAB ENCISO MA, ANNOTATI ON/ADDEN DUM Not Available [facility] 4 03:29:59 Administ ration of diphther ia, pertussi s, and tetanus vaccine Completed 201209/20/2013 RECORDED 11/29/19 13 1:49PM BY BERNA LOPEZ MA, ANNOTATI ON/ADDEN DUM Not Available [facility] 4 03:29:59 Verruca vulgaris 39625443 Completed 201109/20/2013 RECORDED 11/01/19 12 9:09AM BY RADHA MARTIN I, MERARYATI ON/ADDEN DUM Not Available [facility] 4 03:30:00 Ex-smoke r 8364846 Active Not Available [facility] 3 09:53:21 Low back pain 951787296 Completed 03/30/2016 Tello Frankel MD [address] [facility] [address], [place], [address] , [facility] 0 22:47:36 Chondrom alacia of patella 85972709 Active 2016 Improved with PT Not Available [facility] 3 09:53:21 Pain of right hip joint 86004451252 9102 Active 2016 Possible labral tear; followed by ortho. Confirme d tear by MRI on right. Evaluate d for possible arthrosc opic surgery. Surgery done 2016. Good for 1 year. Now with repeat pain and may need addition al surgery. (2022). Will be schedule d for surgery with Dr Griffin Revision surgery done by Dr Plasencia 06/30/22 Not Available [facility] 3 09:53:21 Ankle pain 708547334 Active 2017 Followed by sports medicine . Not Available [facility] 3 09:53:21 Plantar fasciiti s 984678188 Active 2018 right Not Available [facility] 3 09:53:21 Low back pain 050927559 Active 2019 Myofasci al; followed by sports med. Not Available [facility] 3 09:53:21 Tendinit is of flexor tendon of right hand 65461711387 700374 Active 2019 Not Available [facility] 3 09:53:21 Iliopsoa s bursitis of right hip 63401833290 35583 Active 2019 Not Available [facility] 3 09:53:21 Pain of left shoulder joint 86902178724 330409 Active 2019 Followed by [facility]. Seen by sports med and received a PRP (platele t-rich plasma injectio n) by Dr Gan September 2019. 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 44789746521 14259 Active RONI Orellana, [facility] 3 10:52:04 Chondrom alacia of right hip 77318830962 136281 Active RONI Oerllana, [facility] 3 10:52:04 Acetabul ar labrum tear 414100057 Active RONI Orellana, [facility] 3 10:52:04 Migraine 32412216 Active 2022 RECORDED 11/01/19 12 9:09AM BY MESERET LAFLEUR/KAYLEE JUAREZ Not Available [facility] 3 09:53:21 Anxiety 52310444 Active 2023 John Lynne PA-C [address] [facility] [address], [place], [address] , [facility] 4 13:36:44 Gastroes ophageal reflux disease without esophagi tis 690071617 Active 2023 Very difficul t to treat. Followed by Massimo CARLOS. Had an EGD 2023 a hiatal hernia and GERD w/o Barretts Tello Frankel MD [address] [facility] [address], [place], [address] , [facility] 4 08:04:59 Problem Notes None recorded. 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 completed Celi Tanner MA [facility] 12/06/2022 10:00:30 10/24/19 20 shoulder injection completed Zofia Ash [facility] 10/28/2019 10:41:49 09/16/19 20 injection completed Svetlana Seamus [facility] 09/18/2019 09:42:10 08/26/19 20 injection completed Svetlana [employer] Watch [facility] 08/30/2019 09:28:17 08/26/[address] [facility] 08/30/2019 09:29:25 12/24/19 17 Orthopedic Surgery completed Sigrid Dowling [facility] 12/31/2016 09:00:33 Imaging Results None recorded. Procedure Notes None recorded. Medical Equipment None Reported. Allergies Allergen ID Allergen Name Allergen Category Reaction Reaction Severity Criticality Documentation Date Start Date Code Code System Note Provider Name and Address Organization Details Recorded Time 320 Product containin g penicilli n (product) medicatio n Not available Not available Not available 08/27/20132013 93668 [id number] SNOMED Other react ions and sever ities : 'Unkn own'. [facility] 10:[facility]54 Medications Name Sig Start Date Stop Date Status Note LastModified by Organization Details LastModified Time quetiapin e 25 mg tablet TAKE 1 TABLET BY MOUTH DAILY NEEDED 05/28 completed Not Available Not Available Not Available cyclobenz aprine 10 mg tablet TAKE 1 TABLET BY MOUTH EVERY DAY NEEDED FOR SPASM, CAUTION DROWSINE SS FOR 10 DAYS. 12/06 completed Not Available Not Available Not Available oxcarbaze pine 150 mg tablet DAILY 11/15 completed RECORDED 11/16/19 12 9:23AM BY DUSTIN BARNES MA, OFFICE VISIT; Not Available Not Available Not Available clonidine HCl 0.1 mg tablet TAKE 1 TABLET BY MOUTH TWICE A DAY NEEDED FOR ANXIETY active Not Available Not Available No t Available Cortispor in 3.5 mg/mL-10, 000 unit/mL-1 % ear drops,aleja ram QID 11/15 completed RECORDED 11/16/19 12 9:23AM BY DUSTIN BARNES MA, OFFICE VISIT; Not Available Not Available Not Available sucralfat e 1 gram tablet TAKE 1 TABLET BY MOUTH 3 TIMES A DAY BEFORE MEALS, FOR ABDOMINA L PAIN. active Not Available Not Available No t Available sumatript an 25 mg tablet Take 1 tablet as needed by oral route for 28 days. 11/17 completed Not Available Not Available Not Available famotidin e 40 mg tablet TAKE 1 TABLET BY MOUTH EVERY DAY AT HOUR OF SLEEP 90 DAYS active Not Available Not Available No t Available sertralin e 100 mg tablet QD 06/15 completed Not Available Not Available Not Available Zithromax Z-Vinay 250 mg tablet QD 06/06 completed RECORDED 06/08/19 08 10:22AM BY TELLO TOVAR MD, MEDICATI ON AUTO-PARISH CTIVATIO N; Not Available Not Available Not Available sumatript an 50 mg tablet TAKE 1 TABLET BY MOUTH DAILY DIRECTED NEEDED FOR 14 DAYS active Not Available Not Available No t Available meclizine 12.5 mg tablet TAKE 1 TABLET BY MOUTH EVERY 12 HOURS NEEDED FOR 30 DAYS active Not Available Not Available No t Available zolmitrip ramos 5 mg disintegr ating tablet PRN 11/15 completed RECORDED 11/16/19 12 9:23AM BY DUSTIN BARNES MA, OFFICE VISIT;TA KE 1 AT ONSET OF COKER AND MR AFTER 2 HRS Not Available Not Available Not Available omeprazol e 40 mg capsule,d elayed release TAKE 1 CAPSULE BY MOUTH EVERY DAY IN THE MORNING 30 MINUTES BEFORE BREAKFAS T active Not Available Not Available No t Available quetiapin e 100 mg tablet TAKE 1 TABLET BY MOUTH AT BEDTIME 05/28 completed Not Available Not Available Not Available chlorprom azine 10 mg tablet TAKE 1 TABLET BY MOUTH ONCE A DAY SEVERE ANXIETY active Not Available Not Available No t Available zolmitrip ramos 2.5 mg tablet PRN MIGRAINE active RECORDED 03/20/19 10 1:50PM BY TELLO TOVAR MD, ANNOTATI ON/ADDMARY DUM; Not Available Not Available Not Available trazodone 100 mg tablet TAKE 3 TABLETS BY MOUTH AT BEDTIME 05/28 completed Not Available Not Available Not Available fluoxetin e 20 mg tablet TAKE 2 TABLETS BY MOUTH EVERY DAY active Not Available Not Available No t Available esomepraz ole magnesium 40 mg capsule,d elayed release TAKE 1 CAPSULE BY MOUTH EVERY DAY FOR 90 DAYS FOR GERD active Not Available Not Available No t Available fluoxetin e 10 mg capsule TAKE 1 CAPSULE BY MOUTH EVERY MORNING WITH MEAL WITH 20MG TOTAL DAILY DOSE 30MG active Not Available Not Available No t Available docusate sodium 100 mg capsule 100 mg twice a day by oral route. 12/23 completed Not Available Not Available Not Available gabapenti n 300 mg capsule 08/18 completed Not Available Not Available Not Available isomethep tene-dich loralphen -acetamin ophen 65 mg-100 mg-325 mg capsule THREE TIMES DAILY, NEEDED 03/29 completed RECORDED 04/11/19 09 12:53PM BY ALEXSANDER AHN MD, MEDICATI ON AUTO-PARISH CTIVATIO N; Not Available Not Available Not Available diclofena c sodium 75 mg tablet,de layed release TAKE 1 TABLET BY MOUTH TWICE DAILY 09/20 completed Not Available Not Available Not Available mirtazapi ne 15 mg tablet TAKE 3 TABLETS BY MOUTH AT BEDTIME 09/20 completed disconti nued due to palpitat ions Not Available Not Available Not Available propranol ol 20 mg tablet TAKE 1 TABLET BY MOUTH EVERY DAY FOR 90 DAYS active Not Available Not Available No t Available etodolac 500 mg tablet TAKE 1 TABLET AFTER BREAKFAS T & 1 TABLET AFTER DINNER NEEDED FOR PAIN 03/22 completed Not Available Not Available Not Available fluoxetin e 20 mg capsule TAKE 1 CAPSULE BY MOUTH EVERY MORNING WITH 10MG TOTAL DOSE 30MG active Not Available Not Available No t Available sertralin e 50 mg tablet 06/15 completed Not Available Not Available Not Available naproxen 500 mg tablet 500 mg twice a day by oral route. 12/23 completed Not Available Not Available Not Available aripipraz ole 10 mg tablet TAKE 1 AND 1/2 TABLETS BY MOUTH EVERY DAY 12/02 completed Not Available Not Available Not Available cyclobenz aprine 5 mg tablet Take 1 tablet every day by oral route as needed for 20 days. 08/18 completed Not Available Not Available Not Available clonidine QD active RECORDED 03/20/19 10 1:49PM BY TELLO TOVAR MD, ANNOTATI ON/KAYLEE JUAREZ;DR TELLEZ Not Available Not Available Not Available Flonase AT BEDTIME 10/31 completed RECORDED 02/27/19 09 9:27AM BY MONICO BRYSON, MEDICATI ON AUTO-PARISH CTIVATIO N; Not Available Not Available Not Available quetiapin e 50 mg tablet Take 1 tablet every day by oral route at bedtime for 30 days. 08/18 completed Not Available Not Available Not Available oxycodone 5 mg tablet,or al ONLY (not feeding tubes) 0 mg every 4 hours by oral route. 12/23 completed Not Available Not Available Not Available Afluria [id number] (PF) 45 mcg(15 mcg x 3)/0.5 mL intramusc ular syringe 03/30 completed Not Available Not Available Not Available Vitals Date Recorded Body height Body mass index (BMI) Body weight Oxygen saturation Oxygen saturation in Arterial blood by Pulse oximetry Heart rate Body temperature Systolic And Diastolic Provider Name and Address Organization Details Last Updated DateTime 4 185.42 cm 28.9 kg/m2 34098.7 3 g 99 % 99 % 93 /min 99.1 [degF] 129/82 mm[Hg] Raquel aHle MA [facility] 4 13:00:48 Date Recorded Body height Body mass index (BMI) Body weight Heart rate Oxygen saturation Oxygen saturation in Arterial blood by Pulse oximetry Body temperature Systolic And Diastolic Provider Name and Address Organization Details Last Updated DateTime 4 185.42 cm 27.6 kg/m2 20792.8 1 g 79 /min 98 % 98 % 98.7 [degF] 104/69 mm[Hg] Nory mtz [facility] 4 12:53:58 Date Recorded Body height Body mass index (BMI) Body weight Heart rate Oxygen saturation Oxygen saturation in Arterial blood by Pulse oximetry Body temperature Systolic And Diastolic Provider Name and Address Organization Details Last Updated DateTime 4 185.42 cm 27.2 kg/m2 79401.0 3 g 70 /min 98 % 98 % 98.2 [degF] 114/81 mm[Hg] Celi Tanner MA [facility] 4 08:56:10 Date Recorded Body height Body mass index (BMI) Body weight Heart rate Oxygen saturation Oxygen saturation in Arterial blood by Pulse oximetry Body temperature Systolic And Diastolic Provider Name and Address Organization Details Last Updated DateTime 3 185.42 cm 28.5 kg/m2 43174.6 7 g 82 /min 99 % 99 % 98.5 [degF] 142/86 mm[Hg] Celi Tanner MA [facility] 3 09:58:06 Date Recorded Body height Body mass index (BMI) Body weight Heart rate Oxygen saturation Oxygen saturation in Arterial blood by Pulse oximetry Body temperature Systolic And Diastolic Provider Name and Address Organization Details Last Updated DateTime 4 185.42 cm 26.4 kg/m2 85464.4 7 g 97 /min 98 % 98 % 99.2 [degF] 126/86 mm[Hg] Celi Tanner MA [facility] 4 14:07:57 Social History Question Answer Notes LastModified by Organizat ion Details LastModified Time Tobacco Smoking Status Former Smoker VINAYAK Bales [address] [address], [place], [address], [facility] 12/02/2021 13:47:40 Do You Have An Advance Directive? No Information not available 12/02/2021 Is Blood Transfusion Acceptable In An Emergency? Yes [id number] Information not available 12/17/2019 What Is Your Level Of Caffeine Consumption? Moderate Coffee, Tea Information not available 12/02/2021 How Much Tobacco Do You Chew? 2-4/day Information not available 10/14/2020 What Type Of Diet Are You Following? REGULAR [id number] Information not available 12/17/2019 Which Illicit Or Recreational Drugs Have You Used? None [id number] Information not available 12/17/2019 When Did You Quit Smoking? 6-10yearssi [email or web address] rette Information not available 10/14/2020 Live Alone Or With Others? With Others Maternal Grandparents Information not available 12/02/2021 Do You Take Precautions To Prevent Distracted Driving? Yes Information not available 03/30/2016 How Often Do You Need To Have Someone Help You When You Read Instructions, Pamphlets, Or Other Written Material From Your Doctor Or Pharmacy? Never Information not available 03/30/2016 Have You Served In The ? No [email or web address] Information not available 03/30/2016 Have You Or Anyone In Your Household Had Any Of The Following Symptoms In The Last 14 Days: Sore Throat, Cough, Chills, Body Aches For Unknown Reasons, Shortness Of Breath For Unknown Reasons, Loss Of Smell, Loss Of Taste, Fever At Or Greater Than 100 Degrees Fahrenheit? No [email or web address] Information not available 08/18/2020 Are You Or Anyone In Your Household A Health Care Provider Or Emergency Responder? No [email or web address] Information not available 08/18/2020 To The Best Of Your Knowledge Have You Been In Close Proximity To Any Individual Who Tested Positive For COVID-19? No [email or web address] Information not available 08/18/2020 *AWV ONLY* Are You Presently Prescribed Opioid Medication By PCP Or Specialist? If YES -Provider Assess The Benefit For Other, Non-opioid Pain Therapies Instead, Even If The Patient Does Not Have OUD But Is Possibly At Risk. No Information not available 10/14/2020 Have You Recently Traveled To A COVID-19 High Risk Area Or Gathering In The Last 10 Days? No [email or web address] Information not available 08/18/2020 What Was The Date Of Your Most Recent Tobacco Screening? 12/12/2023 [email or web address] Information not available 12/12/2023 How Many Children Do You Have? 0 Information not available 10/14/2020 Do You Use Protection During Sex? Always Information not available 10/14/2020 Do You Use Your Seat Belt Or Car Seat Routinely? Yes Information not available 10/14/2020 Seat Belts Used Routinely Yes Information not available 12/02/2021 Are You Sexually Active? No [id number] Information not available 12/17/2019 Smoke Alarm In Home Yes Information not available 12/02/2021 Do You Have Smoke And Carbon Monoxide Detectors In Your Home? Yes Information not available 10/14/2020 At What Age Did You Start Smoking Tobacco? 16 Quit At 23; Chews Tobacco Information not available 12/02/2021 Are You Passively Exposed To Smoke? No Information not available 03/30/2016 How Much Tobacco Do You Smoke? 1 PPD Information not available 10/14/2020 Do You Use Sunscreen Routinely? Yes Information not available 10/14/2020 How Many Years Have You Smoked Tobacco? 7 [id number] Information not available 12/17/2019 How Many Years Have You Used Smokeless Tobacco? 1 Information not available 12/02/2021 Sex: Unknown Functional Status Question Answer Note LastModified by Organizat ion Details LastModified Time Do you use any illicit or recreational drugs? No Information not available 12/02/2021 Do you or have you ever used any other forms of tobacco or nicotine? Yes Information not available 12/02/2021 What is your level of alcohol consumption? Occasional Information not available 10/14/2020 Do you or have you ever used smokeless tobacco? Currently chews tobacco Information not available 12/02/2021 Are you currently employed? No Information not available 10/14/2020 Are you able to walk? YESWOREST Information not available 12/02/2021 Are you able to care for yourself? Yes [id number] Information not available 12/17/2019 Do you or have you ever used e-cigarettes or vape? Never used electronic cigarettes Information not available 12/02/2021 What is your exercise level? Moderate daily- walking Information not available 12/02/2021 Mental Status None recorded. Family History Relationship Description Onset Age of this Age Resolved Age Notes LastModified by Organization Details LastModified Time Father General health good [email or web address] Not available 13:10:19 Mother Depressive disorder [email or web address] Not available 2020 14:34:03 Mother Anxiety disorder [email or web address] Not available 2020 14:34:03 Mother Migraine [email or web address] Not available 10/14/2020 14:34:03 Paternal Grandfather Heart disease [email or web address] Not available 09/20 14:17:20 Medical History Condition Response Anxiety Disorder Y Depression Y Allergies Y Immunizations Vaccine Type Date Status Note Provider Nam e and Address Organization Details Recorded Time COVID-19, mRNA, LNP-S, PF, 100 mcg/0.5mL dose or 50 mcg/0.25mL dose 1 completed Not Available [facility] 01/06/2023 09:53:22 COVID-19, mRNA, LNP-S, PF, 100 mcg/0.5mL dose or 50 mcg/0.25mL dose 1 completed Not Available [facility] 01/06/2023 09:53:22 Influenza, split virus, quadrivalent, PF 2 completed Not Available [facility] 01/06/2023 09:53:22 Influenza, split virus, trivalent, PF 7 completed Not Available [facility] 01/06/2023 09:53:22 Influenza, split virus, trivalent, PF 6 completed Not Available [facility] 01/06/2023 09:53:22 Influenza, split virus, trivalent, PF 5 completed Not Available [facility] 01/06/2023 09:53:22 Influenza, split virus, quadrivalent, PF 8 completed Not Available [facility] 01/06/2023 09:53:22 COVID-19, mRNA, LNP-S, PF, 100 mcg/0.5mL dose or 50 mcg/0.25mL dose 1 completed Not Available [facility] 01/06/2023 09:53:22 IPV 9 completed Not Available [facility] 03/22/2023 12:52:32 DTaP 9 completed Not Available [facility] 03/22/2023 12:52:32 DTaP 9 completed Not Available [facility] 03/22/2023 12:52:32 IPV 9 completed Not Available [facility] 03/22/2023 12:52:32 MMR 0 completed Not Available [facility] 03/22/2023 12:52:32 IPV 0 completed Not Available [facility] 03/22/2023 12:52:32 DTaP 0 completed Not Available [facility] 03/22/2023 12:52:32 Hib (HbOC) 0 completed Not Available [facility] 03/22/2023 12:52:32 DTaP 1 completed Not Available [facility] 03/22/2023 12:52:32 DTaP 3 completed Not Available [facility] 03/22/2023 12:52:33 IPV 3 completed Not Available [facility] 03/22/2023 12:52:32 MMR 5 completed Not Available [facility] 03/22/2023 12:52:32 Hep B, adult 1 completed Not Available [facility] 03/22/2023 12:52:32 Hep B, adult 1 completed Not Available [facility] 03/22/2023 12:52:32 Hep B, adult 1 completed Not Available [facility] 03/22/2023 12:52:32 Td (adult), 2 Lf tetanus toxoid, preservative free, adsorbed 6 completed Not Available [facility] 03/22/2023 12:52:32 meningococcal MPSV4 6 completed Not Available [facility] 03/22/2023 12:52:32 Novel [id number]-[id number], all formulations 0 completed Not Available [facility] 03/22/2023 12:52:32 influenza, seasonal, intradermal, preservative free 2 completed Not Available [facility] 03/22/2023 12:52:33 Tdap 3 completed Not Available [facility] 03/22/2023 12:52:32 Influenza, split virus, quadrivalent, PF 2 completed Shahida Barraza [facility] [address] [address], [place], [address], [facility] 12/02/2021 15:01:30 Influenza, split virus, quadrivalent, PF 3 completed Tello Frankel MD [address], [address], [facility] 12/06/2022 12:33:12 Td (adult), 2 Lf tetanus toxoid, preservative free, adsorbed 3 completed Tello Frankel MD [address] [address], [place], [address], [facility] 12/06/2022 12:33:12 Influenza, split virus, trivalent, PF 4 completed Tello Frankel MD [address], [address], [facility] 12/13/2023 10:59:24 Past Encounters Encounter ID Performer Location Encounter Start Date Encounter Closed Date Diagnosis/Indication Diagnosis SNOMED-CT Code Diagnosis ICD10 Code Diagnosis Note [id number] [facility] [address] [facility] [address] [place] [address] 08/30/2006 00:00:00 7615 [facility] [facility] [address] [facility] [address] [place] [address] 12/06/2006 00:00:00 7616 [facility] [facility] [address] [facility] [address] [place] [address] 12/11/2006 00:00:00 7617 [facility] [facility] [address] [facility] [place] [address] 06/02/2007 00:00:00 [id number] [facility] er[facility] [address] [facility] [address] [place] [address] 06/19/2007 00:00:00 [id number] [facility] [facility] [address] [facility] [address] [place] [address] 09/03/2007 00:00:00 7620 [facility] [facility] [address] [facility] [place] [address] 10/02/2007 00:00:00 7621 auto[employer] erce [address] [facility] [address] [place] [address] 02/28/2008 00:00:00 7622 auto[facility] erce [address] [facility] [place] [address] 04/11/2008 00:00:00 7623 auto[employer] erce [address] [facility] [place] [address] 05/26/2008 00:00:00 [id number] auto[facility] er[facility] [address] [facility] [place] [address] 03/20/2009 00:00:00 7625 auto[employer] erce [address] [facility] [place] [address] 11/01/2011 00:00:00 7626 autoEComm erce [address] [facility] [place] [address] 11/16/2011 00:00:00 [id number] auto[facility]Comm erce [address] [facility] [place] [address] 10/02/2012 00:00:00 [id number] [facility] [facility] [address] [facility] [place] [address] 11/28/2012 00:00:00 [id number] auto[facility] erce [address] [facility] [place] [address] 05/06/2013 00:00:00 [id number] VINAYAK Ho Main Office [address] [facility] [address] [place] [address] 01/14/2014 09:16:53 01/14/2014 09:47:15 Low back pain 201322804 call if worsening [id number] John Lynne PA-C Main Office [address] [address] [place] [address] 03/30/2016 10:23:49 03/30/2016 11:58:03 Upper respiratory infection 17282483 J06.9 Cough 01589160 R05 prob. d/t postnasal drip [id number] Tello Frankel MD Main Office [address] [address] [place] [address] 06/15/2016 10:40:29 06/15/2016 11:51:55 Adult health examination 738626211 Z00.00 UTD with immunizati ons Anterior knee pain 28798 3006 M25.561 Thigh pain 12121405 M79. 651 He will make an appointmen t with a PT in [facility]. Venkatesh de la Tourette's syndrome 3665676 F95.2 Followed by psychiatry [id number] Misael Gottlieb MD Main Office [address] [address] [place] [address] 06/05/2018 11:23:55 06/05/2018 12:31:34 Low back pain 424710287 M54.5 ? from compensati ng d/t R plantar fasciitis - ? 'out of alignment' / has leg length discrepanc y already in PT for plantar fasciitis - add back and hip pain to DX so PT can work on these issues too rec aleve, moist heat, hep and prn m. relaxer, and to f/u c his physiatris t if worse [id number] Ava Lynne PA-C Main Office [address] [address] [place] [address] 08/18/2020 08:36:08 08/18/2020 09:36:54 Thoracic back sprain 823428363 S23.3XXA Likely due to continued use and discontinu ation of PT. Recommend moist heat, Ibuprofen or Aleve as needed. Will prescribe muscle relaxant for pain. Patient will book appt with PT. Patient to return if worsens, loss of bowel or bladder control, difficulty ambulating . [id number] Tello Frankel MD Main Office [address] [facility] [address] [place] [address] 10/14/2020 14:16:41 10/14/2020 15:16:34 Adult health examination 756085266 Z00.00 UTD with immunizati ons. No need for blood work since not at high risk. Will begin screening labs at age 33. Venkatesh de la Tourette's syndrome 7856840 F95.2 Followed by psychiatry [id number] Yanci Baker MD Main Office [address] [facility] [address] [place] [address] 05/28/2021 08:12:16 05/31/2021 09:10:37 Migraine 80952009 G43.909 By history pt does seem to have migraine headaches with aura. He has typical onset of blurry vision, followed by onset of throbbing headache with photophobi a and aura then recedes. HAs more frequent 2-3 times a month. Pattern had been one headache 1-2 times a year. He is requesing med to use prn for aborting the headache. Not interested in daily med at this time.Pt agrees to try sumitripta n at onset of headache, take 1 and repeat dose in an hour or two if not improving. If this dose is not enough can go up to 50 mg dosing. Side effects reviewed. Advised in office evaluation to see if neuro referral is needed. Pt to call if not helping or if med not working or having focal sx, ED if acute. Reviewed both meds he is taking have serotonerg ic action but both are low dose an will follow closely [id number] Yanci Baker MD Main Office [address] [facility] [address] [place] [address] 07/28/2021 13:52:44 07/28/2021 14:50:43 Pain of hip region 78342434 M25.551 Sudden onset right hip pain, r/o labral tear, Pt to have MRI to assess, see orthopedic surgeon for evaluation , can try light PT. No heavy exercise of LE [id number] Tello Frankel MD Main Office [address] [facility] [address] [place] [address] 09/20/2021 13:46:47 09/20/2021 15:20:48 Palpitations 25732645 R00.2 new problem and worseningo nly occurs in the evening and associated dizzinessp ossible differenti als: hyperthyro idism, arrhythmia , anxiety, anemiaOrde red EKG which showed NSROrdered TSH and free [id number] CBC and CMPCounsel led on sleep hygeine and to reduce playing video games at nightCouns elled on meditation s and relaxation techniques if worsening will consult cardiology for possible holter Weight increased 4111358 00 R63.5 pt had a 11 pound increase since last visitmost likely due to reduced physical activity after hip injuryorde red lipid profile and hbA1c [id number] Tello Frankel MD Main Office [address] [address] [place] [address] 12/02/2021 13:09:51 12/02/2021 13:59:49 Adult health examination [id number] Z00.00 UTD with immunizati ons. Had bloodwork in September, WBC was 16.4, he will repeat CBC as ordered by PCP. Venkatesh de la Tourette's syndrome [id number] F95.2 he is not currently seeign psychiatry - waiting on appt. He does feel his tourette's has worsened and he would like to see neurology. Will refer. Needs infl uenza immunization [id number] Z23 [id number] Misael Gottlieb MD Main Office [address] [address] [place] [address] 03/17/2022 11:18:43 03/17/2022 12:15:44 Pain of multiple joints [id number] M25.50 advised pt to walk along a line - check for leg length discrepanc y - if + then get heel cup for that side - hopefully will balance gait and alleviate some of his discomfort meanwhile, check labs and get rheum eval as well [id number] FELISA AYALA Main Office [address] [address] [place] [address] 10/26/2022 10:36:31 10/26/2022 11:07:10 Migraine without aura 11604151 G43.009 Tension-type headache 39 5472419 G44.209 [id number] FELISA AYALA Main Office [address] [address] [place] [address] 11/17/2022 10:38:21 11/17/2022 11:16:11 Migraine without aura 59878108 G43.009 -Has had improvemen ts in frequency and severity of migraines since last visit 10/26. New prescripti on in contacts also aided in improvemen t of symptoms.- Is on sumatripta n 50mg daily prn Exposure to mold 4451253 072 8455061 Z77.120 -Removed black mold from bedroom about 2 weeks ago. Since has been overall feeling better.-Im provements in his sinus symptoms and migraines. -No respirator y issues.-Di scussed with pt to see if he could stay at his parents for 1-2 weeks to monitor any changes in symptoms-W ill have pt complete RAST mold panel [id number] Tello Frankel MD Main Office [address] [address] [place] [address] 12/06/2022 09:39:55 12/06/2022 10:57:53 Adult health examination 376786215 Z00.00 UTD with immunizati ons and will take a flu vaccine today. Needs infl uenza immunization 549232195 Z23 Chronic re current sinusitis 002678875 J32.9 Will refer to ENT and if symptoms persist will then refer him to an integrated circuit layout designer. Hepatitis C screening 39 3659010 Z11.59 Requires a tetanus booster 505107847 Z23 Venkatesh de la Tourette's syndrome 7286608 F95.2 Followed by psychiatry in the past but this has not been a noticeable problem for him. Hyperlipidemia 57042848 E78.5 Migraine 79537492 G43.90 9 Only gets 1-2 episodes a year and these respond well to imitrex. Tobacco non-user 4051181 001 15318 Z13.89 Quit almost 10 years ago. [id number] Misael Gottlieb MD Main Office [address] [address] [place] [address] 03/22/2023 12:50:21 03/22/2023 13:50:12 Benign paroxysmal positional vertigo 767881554 H81.10 will get vestibular therapy saima has no problems sleeping so do not believe prn meclizine would be of much helpwill give note for work at pt request - see below Anxiety 68953053 F41.9 severe on krystle, mild on phq - actually scored lower on both as compared to scores from 10.23 PE - cont seeing therapist wkly (has been for the past yr)cont med as dircont see psychiatri [facility] [id number] Tello Frankel MD Main Office [address] [place] [address] [place] [address] 08/29/2023 12:40:35 08/29/2023 13:17:40 Gastroesophageal reflux disease 600310883 K21.9 He will cut back on the tomatoes and garlic for now. Start prilosec and f/u in 3 weeks. [id number] Tello Frankel MD Main Office [address] [place] [address] [place] [address] 09/26/2023 08:50:05 09/26/2023 09:35:28 Upper abdominal pain 61199732 R10.10 Symptoms are c/w GERD but PPI not giving much help. An ulcer is a considerat ion and will get labs to look for a pancreatic cause. [id number] Tello Frankel MD Main Office [address] [place] [address] [place] [address] 12/12/2023 13:38:53 12/12/2023 14:46:03 Adult health examination [id number] Z00.00 UTD with immunizati ons and will take a flu vaccine today. Needs infl uenza immunization 452866034 Z23 19 YEARS AND OLDER ONLY Gastroesop hageal reflux disease 059339463 K21.9 He was seen at [facility] and had an EGD in October 2023. He was placed on an E1Mdznuof and continues with his PPI but his symptoms persist and he is unable to eat. He has a f/u GI appointmen t but not until another 5-6 weeks. I will call and speak to the PA who saw him. Venkatesh de la Tourette's syndrome 6399674 F95.2 Followed by psychiatry in the past but this has not been a noticeable problem for him. Migraine 51536429 G43.90 9 Only gets 1-2 episodes a year and these respond well to imitrex. Health Concerns Section Related Observation LastModified by Organization Detai ls LastModified Time None Recorded Concern Status LastModified by Organization Details LastModified Time None Recorded Advance Directives Directive N: Payers Insurance Date Sequence Insurance Name Policy Number Policy Flores Covered Member ID Flores Member ID Guarantor Name 05/03/2021 1 [employer] [facility] [employer] (HMO) [id number] Max A A Hope [id number] Max A Hope 05/27/2024 1 [place] [facility] Max A Hope [id number] Max A Hope 03/30/2016 1 [employer] [id number] Sundar Thompson [id number] Max Maylin Hope Notes Date Note Type Note Provider Name and Address Organization Details Recorded Time 12/06/2022 text/html Generic HPI TemplateReported bypatient.Notes:He has been having trouble with recurrent sinus pain despite using a nasal steroid and an anti-histamine.Not currently working but actively looking.Continued right hip pain. Followed by ortho. Got some help from PT. Tello Frankel MD [address] [address], [place], [address], [facility] 12/06/2022 13:59:44 03/22/2023 text/html Anxiety/Depressi onRepo rted bypatient.Quality:incr eased anxiety Severity:denies suicidal ideations Context:major life stressors Associated Symptoms:denies homicidal ideations Pt has been dizzy on/off for the past year,this last episode started 5 days ago. Pt does have an apt in roughly 2 months. Pt also reports anxiety of late which makes the dizziness worse. 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 Worse with eating. Trying to cut back on acidic and usually eats healthy. No vomiting and no change in his bowels. Has been going on for 5-6 days. He eats a lot of tomatoes and garlic. Does not smoke or drink alcohol. Generally has a good diet. Tello Frankel MD [address], [address], [facility] 08/29/2023 13:20:41 09/26/2023 text/html He received some help after a week on the prilosec but over the past couple of weeks it hasn't been consistent. He had a burrito about 10 days ago and had abdominal (midepigastric) pain for 2-3 days. His appetite was decreased. He denies change in stools and did not have vomiting. He was taking a lot of NSAIDs at one time because of chronic right hip pain for which he had surgery. Tello Frankel MD [address], [address], [facility] 09/26/2023 09:39:25 12/12/2023 text/html Generic HPI TemplateReported bypatient.Notes:Not currently working but actively looking.Continued right hip pain. Followed by ortho. Got some help from PT.Had the initial COVID vaccine series and one booster. No plans to get additional boosters.Had a tetanus update in 2022.Will get a flu vaccine today. Tello Frankel MD [address], [address], [facility] 12/13/2023 11:28:06
--- OUTSIDE RECORDS SUMMARY | 2024-08-19 14:42 | XMS_ITS | Encounter Summary ---
Author Organization [facility] Address [address] [place] [address] Care Team Providers Care Street Sprinkler Name Role Phone Rakan Frankel MD Primary Care Provider [phone] Reason for Visit * Reason Comments Anemia Encounter Details Date Type Department Care Team ([facility] st Contact Info) Description 07/30/2024 Billing Patient Not Present Gastroenterology - [address] [place] [address] Shanique [place] Social History Tobacco Use Types Packs/Day Years Used Date Smoking Tobacco: Never Alcohol Use Standard Drinks/Week Comments Not Currently 0 (1 standard drink = 0.6 oz pur e alcohol) Sex and Gender Information Value Date Recorded Sex Assigned at Male 05/27/2024 11:15 AM EDT Legal Sex Male 12:40 PM EST Gender Identity Male 05/27/2024 11:15 AM EDT Sexual Orientation Straight 05/27/2024 11 :25 AM EDT documented as of this encounter Plan of Treatment Not on file documented as of this encounter Visit Diagnoses Not on filedocumented in this encounter Care Teams Street Sprinkler Relationship Specialty Start Date End Date Rakan Frankel MD [address] [facility] [address] [place], [place] PCP - General Internal Medicine 06/05/12 documented as of this encounter
== END 2024-08-19 14:52 | disposition home or self-care (01) ==
LOC: HO.HSM 14:16
PROVIDERS: PCP Internal Medicine; Referring Provider Internal Medicine; Visit Provider Registered Nurse
DX: G43.109 Migraine with aura, not intractable, without status migrainosus (principal); F95.2 Tourette's disorder
CPT/HCPCS: 99214

== ENCOUNTER → 2024-08-19 14:16 | Outpatient (BNVA) | payer MEDICAID, SELFPAY | PROVIDERS: PCP Internal Medicine; Referring Provider Internal Medicine; Visit Provider Registered Nurse | DX: F95.2 Tourette's disorder (principal); G43.109 Migraine with aura, not intractable, without status migrainosus | CPT/HCPCS: 99212 ==

== ENCOUNTER 2025-01-02 11:26 | Outpatient (AMB) | payer MEDICAID, SELFPAY ==
--- NOTE | 2025-01-02 11:29 | A.OFFVIS_ITS ---
Intake Visit Reasons: 6 month f/u Allergies Penicillins (PENICILLINS) Allergy (Unknown, Unverified 01/02/25 11:31) RASH Medication List - Last Reconciled 01/02/25 by Yuridia Maldonado CNP clonidine HCl 0.1 mg PO BID PRN famotidine 40 mg PO BEDTIME meclizine 12.5 mg PO Q12H PRN omeprazole 40 mg PO QAM propranolol 20 mg PO BID quetiapine 25 mg PO DAILY PRN HPI Comments Details: 34-year-old man with Tourette syndrome and basilar migraine. He was doing okay. Migraines were controlled with propranolol twice a day. No significant dizziness and he has not had to use meclizine recently. Sleep was okay. 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 He was working with psychiatrist and therapist. [facility] Medical History (Updated 08/19/24 @ 14:33 by Yuridia Maldonado CNP) Orozco's esophagus Hernia Basilar migraine Depression Anxiety Tourette syndrome Review of Systems Const Denies chills, Denies daytime sleepiness, Denies difficulty sleeping, Denies fatigue, Denies fever(s), Denies frequent falls, Reports headache(s), Denies increased appetite, Denies poor appetite, Denies snoring, Denies weakness, Denies weight gain and Denies weight loss Eyes Denies loss of vision ENT Reports vertigo, Denies dizziness and Reports headache(s) Card Denies chest pain at rest, Denies chest pain with activity, Denies leg edema and Denies palpitations Resp Denies snoring GI Denies constipation, Denies heartburn, Denies diarrhea and Denies nausea Denies urinary frequency, Denies urinary incontinence and Denies urinary urgency Musc Denies abnormal gait, Denies numbness and Denies tingling Skin/Breast Denies dry skin and Denies rash Neuro Denies abnormal gait, Reports vertigo, Denies dizziness, Denies frequent falls, Reports headache(s), Denies lack of coordination, Denies loss of vision, Denies memory loss, Denies numbness, Denies restless legs, Denies seizure-like activity, Denies tingling, Denies paresthesias, Denies tremor(s) and Denies weakness Psych Reports anxiety, Reports depression, Denies auditory hallucinations, Denies memory loss, Denies visual hallucinations and Denies suicidal ideation Endo Denies fatigue and Denies palpitations Physical Exam Const Other: General Appearance:? normal, in no acute distress. Skin:? no rashes, no significant birthmarks. Heart:? S1, S2 normal, no murmurs. Lungs:? clear anteriorly and posteriorly. Extremities:? no edema. Psych:? alert, oriented, cognitive function intact, cooperative with exam. Neuro Other: Mental Status:?Normal attention, orientation, memory and affect.? Cranial Nerves:?Pupils are equal, round and reactive to light. External occular muscles are intact. Visual castro are full. Face is symmetrical. Facial sensations are normal. Tongue is midline. Palate elevates symmetrically. Shoulder shrugging is normal. Hearing to bedside conversation is normal. Sensory Exam:?....? Coordination:?No ataxia,?no titubation.? Gait Exam: Within normal limits. Cerebellar Signs:?Uonvla-po-keek is okay. Extrapyramidal System:?No tremor, rigidity with normal facial expressions.? Pronator Drift:?Not present.? Involuntary Movements:?No tremors seen.?Few facial tics noted. Speech:?Normal.? Assessment & Plan Assessment & Plan (1) Basilar migraine: Code(s): G43.109 - Migraine with aura, not intractable, without status migrainosus Category: Medical Plan: Continue propranolol 20mg 1 tablet twice a day Continue meclizine 12.5mg 1 tablet twice a day as needed for dizziness (2) Tourette syndrome: Code(s): F95.2 - Tourette's disorder Category: Medical Plan Meds tried: propranolol, sumatriptan Coding Level of Care Code Est Pt Level 4 (89296) Diagnoses Basilar migraine G43.109 Tourette syndrome F95.2
--- OUTSIDE RECORDS SUMMARY | 2025-01-02 17:40 | XMS_ITS | Encounter Summary ---
Author Organization [facility] Address [address] [facility] [address] [place] [address] Phone Care Team Providers Care Coat Finisher Name Role Phone Rakan Frankel MD Primary Care Provid er Encounter Details Date Type Department Care Team (Late st Contact Info) Description 11/01/2023 Procedure Pass [facility] Admitting Dept Virtual Department [address] [place] [address] Social History Tobacco Use Types Packs/Day Years Used Date Smoking Tobacco: Never Smokeless Tobacco: Former Alcohol Use Standard Drinks/Week Comments Not Currently 0 (1 standard drink = 0.6 oz pur e alcohol) Education Answer Date Recorded Are you interested in more education? Not on shai e 06/10/2022 Are you concerned about learning? Not on file 06/10/2022 No 06/10/2022 No 06/10/2022 Digital Access Answer Date Recorded No 07/05/2022 No 07/05/2022 Reliable internet access at home? Not on file 07/05/2022 Device with a working camera? Not on file Intimate Partner Violence Answer Date R ecorded Are you denied basic needs s uch as food, clothing, or medical care? No 11/01/2023 In the past 12 months have y ou been in a relationship with a person who hurts, threatens, or tries to control you? No 11/01/2023 Are you denied basic needs s uch as food, clothing, or medical care? No 11/01/2023 In the past 12 months have y ou been in a relationship with a person who hurts, threatens, or tries to control you? No 11/01/2023 Sex and Gender Information Value Date Recorded Sex Assigned at Male 06/07/2018 11:00 AM EDT Legal Sex Male 9:07 PM EDT Gender Identity Male 06/07/2018 11:00 AM EDT Sexual Orientation Straight 06/07/2018 11 :00 AM EDT documented as of this encounter Plan of Treatment Not on file documented as of this encounter Visit Diagnoses Not on filedocumented in this encounter Care Teams Coat Finisher Relationship Specialty Start Date End Date Rakan Frankel MD [address] [phone] PCP - General Internal Medicine 06/07/18 documented as of this encounter Additional Source Comments The information contained in this document represents components of the legal health record. It is not the complete legal health record.[facility]
--- OUTSIDE RECORDS SUMMARY | 2025-01-02 17:40 | XMS_ITS | Encounter Summary ---
Author Organization [facility] Address [address] [employer] [facility] [address] [place] [address] Phone Care Team Providers Care Infant Lead Teacher Name Role Phone Rakan Frankel MD Primary Care Provid er Encounter Details Date Type Department Care Team (Latest Contact Info) Description 01/22/2024 Transcribe Orders Virtual Department [address] [place] [address] Candie Jeronimo CNP [address] [place] [address] [email or web address] RUQ abdominal pain (Primary Dx); Gastroesophageal reflux disease without esophagitis Social History Tobacco Use Types Packs/Day Years [...] on file documented as of this encounter Results * FL BARIUM SWALLOW ESOPHAGRAM DOUBLE CONTRAST (02/13/2024 9:21 AM EST) Anatomical Region Laterality Modality Chest Radio Fluoroscop y 02/13/2024 11:2 8 AM EST Impressions 02/13/2024 3:14 PM EST No spontaneous gastroesophageal reflux or gross mucosal pathology observed during this examination. FLUOROSCOPY TIME: 1 minute 12 seconds NUMBER OF IMAGES: 187 The examination was performed by RRAMukesh. Dr. Jamie Elizondo was immediately available for portions of the procedure as needed. ATTESTATION: I, Jamie Elizondo as teaching physician, have reviewed the images for this case and if necessary edited the report originally created by Mukesh Duran. Narrative 02/13/2024 3:14 PM EST FL BARIUM SWALLOW ESOPHAGRAM DOUBLE CONTRAST HISTORY: GERD. Right upper quadrant abdominal pain. COMPARISON: US abdomen limited right upper quadrant 12/22/2023. TECHNIQUE: Double contrast barium swallow examination was performed with Sodium Carbonate and Barium. FINDINGS: SWALLOW: No keara aspiration observed during this examination. ESOPHAGUS: Motility: Within normal limits. Mucosa: No discrete mass, ulceration or fixed stricture demonstrated fluoroscopically. Distensibility: Normal. GASTROESOPHAGEAL JUNCTION: No evidence of hiatal hernia. GASTROESOPHAGEAL REFLUX: None observed. TABLET: A 13 mm barium tablet passed into the stomach without difficulty. Visualized portion of the stomach and proximal small bowel are unremarkable. Procedure Note Jamie Elizondo MD - 02/13/2024 FL BARIUM SWALLOW ESOPHAGRAM DOUBLE CONTRAST HISTORY: GERD. Right upper quadrant abdominal pain. COMPARISON: US abdomen limited right upper quadrant 12/22/2023. TECHNIQUE: Double contrast barium swallow examination was performed withSodium Carbonate and Barium. FINDINGS: SWALLOW: No keara aspiration observed during this examination. ESOPHAGUS: Motility: Within normal limits. Mucosa: No discrete mass, ulceration or fixed stricture demonstratedfluoroscopically. Distensibility: Normal. GASTROESOPHAGEAL JUNCTION: No evidence of hiatal hernia. GASTROESOPHAGEAL REFLUX: None observed. TABLET: A 13 mm barium tablet passed into the stomach withoutdifficulty. Visualized portion of the stomach and proximal small bowel areunremarkable. IMPRESSION: No spontaneous gastroesophageal reflux or gross mucosal pathology observedduring this examination. FLUOROSCOPY TIME: 1 minute 12 seconds NUMBER OF IMAGES: 187 The examination was performed by RRAMukesh. Dr. Jamie Elizondo wasimmediately available for portions of the procedure as needed. ATTESTATION: I, Jamie Elizondo as teaching physician, have reviewed theimages for this case and if necessary edited the report originally createdby Mukesh Duran. Candie Morris Phani [facility] Final Resu lt documented in this encounter Visit Diagnoses Diagnosis RUQ abdominal pain- Primary Abdominal pain, right upper quadrant Gastroesophageal reflux disease without esophagitis Esophageal reflux RUQ abdominal pain Abdominal pain, right upper quadrant Gastroesophageal reflux disease without esophagitis Esophageal reflux documented in this encounter Care Teams Infant Lead Teacher Relationship Specialty Start Date End Date Rakan Frankel MD [address] [phone] PCP - General Internal Medicine 06/07/18 documented as of this encounter Additional Source Comments The information contained in this document represents components of the legal health record. It is not the complete legal health record.[facility]
--- OUTSIDE RECORDS SUMMARY | 2025-01-02 17:40 | XMS_ITS | Encounter Summary ---
Author Organization [facility] Address [address] [facility] [address] [place] [address] Phone Care Team Providers Care Fiber Analyst Name Role Phone Rakan Frankel MD Primary Care Provid er Encounter Details Date Type Department Care Team (Late st Contact Info) Description 05/25/2022 Procedure Pass [facility] - [address] [address] Social History Tobacco Use Types Packs/Day Years Used Date Smoking Tobacco: Never Smokeless Tobacco: Former Alcohol Use Standard Drinks/Week Comments Yes 0 (1 standard drink = 0.6 oz [...] on filedocumented in this encounter Care Teams Fiber Analyst Relationship Specialty Start Date End Date Rakan Frankel MD [address] [address] PCP - General Internal Medicine 06/07/18 documented as of this encounter Additional Source Comments The information contained in this document represents components of the legal health record. It is not the complete legal health record.[facility]
--- OUTSIDE RECORDS SUMMARY | 2025-01-02 17:40 | XMS_ITS | Data Portability ---
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 Plan of Treatment Reminders Order Date Submit Date Provider Last Modified By Organization Details Last Modified Time Details Appointments None recorde d. Lab amylase + lipase, serum 2023 024 PRASHANT [facility] (Centralized Electronic Ordering - All Locations), Patient Can Go To The Location Of Their Choice, [id number] 4 06:08:32 CBC w/ auto diff 2023 024 PRASHANT [facility], [address], [place], [address], 4 10:07:08 hepatic functio n panel, serum 2023 024 PRASHANT [facility], [address], [place], [address], 4 10:07:09 CMP, serum or plasma 2022 023 [facility], [address] [facility], [place], [address], 3 11:07:31 hepatit is C virus Ab, serum 2022 023 PRASHANT [facility], [address] [facility], [address], [place], [address], 3 13:09:45 Referral gastroe nterolo gist referra l - Six + months of midepig astric pain. Normal labs. Little help from PPI. 2023 PRASHANT Bowman MD, [address] [place], [address], 5 11:01:40 otolary [facility] referra l - Recurre nt frontal and maxilla ry sinus pain. Not helped much by flonase and clariti n. [address] , [facility] [address], [place], [address], 4 09:08:42 Procedures None recorde d. Surgeries None recorde d. Imaging XR, sinuses , paranas al, less than 3 view - Recurre nt maxilla ry and frontal sinus pain not helped by flonase and clariti n. R/o obstruc tion 2022 023 [facility] [address], [place], [address], 3 13:20:12 Medication Orders esomepr azole magnesi um 40 mg capsule ,delaye d release 2023 024 [id number], [address] [place], [address], 14:40:51 omepraz ole 40 mg capsule ,delaye d release 2023 024 [facility], [address] [place], [address], 09:29:50 omepraz ole 40 mg capsule ,delaye d release 2023 024 PRASHANT [facility], [address] [place], [address], 13:13:48 Patient TargetsNo targets recorded. Patient Instructions Encounter Date Encounter Id Patient Instructions Last Modified By Organization Details Last Modified Time 12/06/2022 [id number] chronic sinusiti s: care instructions [email or web address] Not available 12/06/2022 10:39:44 03/22/2023 [id number] benign paroxysma l positional vertigo (bppv): care [...] thx! 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 Not helped much by flonase and claritin. 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 Normal labs. Little help from PPI. Referring Physician: Tello Frankel, [facility], Encounter Date: 09/26/2023 Results Created [...] [facility], [address], [place] [address] Not Available [facility] (Centralized Electronic Ordering - All Locations) Patient Can Go To The Location Of Their Choice, [id number] 11/20/2022 16:06:30 01/20/2001/19/2023 COMPR EHENS DC METAB OLIC PANL glucose 81 mg/dL (70-99 ) Not Available [facility] (Centralized Electronic Ordering - All Locations) Patient Can Go To The Location Of Their Choice, [id number] 01/19/2023 11:07:31 01/20/20 23 01/19/2023 COMPR EHENS DC METAB OLIC PANL BUN 17 mg/dL (6-20) Not Available [facility] (Centralized Electronic Ordering - All Locations) Patient Can Go To The Location Of Their Choice, [id number] 01/19/2023 11:07:31 01/20/20 23 01/19/2023 COMPR EHENS DC METAB OLIC PANL creatinine 1.1 mg/dL (0.7-1 .2) Not Available [facility] (Centralized Electronic Ordering - All Locations) Patient Can Go To The Location Of Their Choice, [id number] 01/19/2023 11:07:31 01/20/20 23 01/19/2023 COMPR EHENS DC METAB OLIC PANL sodium 139 mmol/ L (133-1 45) Not Available [facility] (Centralized Electronic Ordering - All Locations) Patient Can Go To The Location Of Their Choice, [id number] 01/19/2023 11:07:31 01/20/20 23 01/19/2023 COMPR EHENS DC METAB OLIC PANL potassium 4.7 mmol/ L (3.6-5 .2) Not Available [facility] (Centralized Electronic Ordering - All Locations) Patient Can Go To The Location Of Their Choice, [id number] 01/19/2023 11:07:31 01/20/2001/19/2023 COMPR EHENS DC METAB OLIC PANL chloride 102 mmol/ L (98-10 7) Not Available [facility] (Centralized Electronic Ordering - All Locations) Patient Can Go To The Location Of Their Choice, [id number] 01/19/2023 11:07:31 01/20/2001/19/2023 COMPR EHENS DC METAB [...] Go To The Location Of Their Choice, [id number] 01/19/2023 11:07:31 01/20/2001/19/2023 COMPR EHENS DC METAB OLIC PANL albumin 4.6 gm/dL (3.4-4 .8) Not Available [facility] (Centralized Electronic Ordering - All Locations) Patient Can Go To The Location Of Their Choice, [id number] 01/19/2023 11:07:31 01/20/2001/19/2023 COMPR EHENS DC METAB [...] Go To The Location Of Their Choice, [id number] 01/19/2023 11:07:31 01/20/20 23 01/19/2023 COMPR EHENS DC METAB OLIC PANL Ag ratio 2.1 Not Available [facility] (Centralized Electronic Ordering - All Locations) Patient Can Go To The Location Of Their Choice, [id number] 01/19/2023 11:07:31 01/20/20 23 01/19/2023 COMPR EHENS DC METAB OLIC PANL AST 18 U/L (0-40) Not Available [facility] (Centralized Electronic Ordering - All Locations) Patient Can Go To The Location Of Their Choice, [id number] 01/19/2023 11:07:31 01/20/20 23 01/19/2023 COMPR EHENS DC METAB OLIC PANL alk phos 63 U/L (40-12 9) Not Available [facility] (Centralized Electronic Ordering - All Locations) Patient Can Go To The Location Of Their Choice, [id number] 01/19/2023 11:07:31 01/20/20 23 01/19/2023 COMPR EHENS DC METAB OLIC PANL ALT 28 U/L (0-41) Not Available [facility] (Centralized Electronic Ordering - All Locations) Patient Can Go To The Location Of Their Choice, [id number] 01/19/2023 11:07:31 01/20/20 23 01/19/2023 COMPR EHENS [...] Go To The Location Of Their Choice, [id number] 01/19/2023 11:07:31 01/20/20 23 01/20/2023 LYME AB [...] Go To The Location Of Their Choice, [id number] 01/20/2023 09:34:05 01/20/20 23 01/20/2023 ANTI- NUCLE [...] rp, [address], [place] [address] Not Available [facility] (Centralized Electronic Ordering - All Locations) Patient Can Go To The Location Of Their Choice, [id number] 01/20/2023 23:05:54 01/20/20 23 01/21/2023 ANTI- HEPAT [...] HCV infec tion. Test perfo rmed by [facility], [address], [place] [address] Not Available [facility] (Centralized Electronic Ordering - All Locations) Patient Can Go To The Location Of Their Choice, [id number] 01/21/2023 13:09:45 08/29/19 24 08/30/2023 CBC WITH DIFFE RENTI AL/PL ATELE T WBC 7.8 x10e3 /uL 3.4-10 .8 Not Available [facility] ([facility]) [address] [facility], [place], [address], 08/30/2023 10:07:08 08/29/19 24 08/30/2023 CBC WITH DIFFE RENTI AL/PL ATELE T RBC 5.35 x10e6 /uL 4.14-5 .80 Not Available [facility] ([facility]) [address] [facility], [place], [address], 08/30/2023 10:07:08 08/29/19 24 08/30/2023 CBC WITH DIFFE RENTI AL/PL ATELE T hemoglobin 16.8 g/dL 13.0-1 7.7 Not Available [facility] ([facility]) [address] [facility], [place], [address], 08/30/2023 10:07:08 08/29/19 24 08/30/2023 CBC WITH DIFFE RENTI AL/PL ATELE T hematocrit 49.3 % 37.5-5 1.0 Not Available [facility] ([facility]) [address] [facility], [place], [address], 08/30/2023 10:07:08 08/29/19 24 08/30/2023 CBC WITH DIFFE RENTI AL/PL ATELE T MCV 92 fL 79-97 Not Available [facility] ([facility]) [address] [facility], [place], [address], 08/30/2023 10:07:08 08/29/19 24 08/30/2023 CBC WITH DIFFE RENTI AL/PL ATELE T MCH 31.4 pg 26.6-3 3.0 Not Available [facility] ([facility]) [address] [facility], [place], [address], 08/30/2023 10:07:08 08/29/19 24 08/30/2023 CBC WITH DIFFE RENTI AL/PL ATELE T MCHC 34.1 g/dL 31.5-3 5.7 Not Available [facility] ([facility]) [address] [facility], [place], [address], 08/30/2023 10:07:08 08/29/19 24 08/30/2023 CBC WITH DIFFE RENTI AL/PL ATELE T RDW 12.9 % 11.6-1 5.4 Not Available [facility] ([facility]) [address] [facility], [place], [address], 08/30/2023 10:07:08 08/29/19 24 08/30/2023 CBC WITH DIFFE RENTI AL/PL ATELE T platelets 254 x10e3 /uL 150-45 0 Not Available [facility] ([facility]) [address] [facility], [place], [address], 08/30/2023 10:07:08 08/29/19 24 08/30/2023 CBC WITH DIFFE RENTI AL/PL ATELE T neutrophils 65 % not estab. Not Available [facility] ([facility]) [address] [facility], [place], [address], 08/30/2023 10:07:08 08/29/19 24 08/30/2023 CBC WITH DIFFE RENTI AL/PL ATELE T lymphs 24 % not estab. Not Available [facility] ([facility]) [address] [facility], [place], [address], 08/30/2023 10:07:08 08/29/19 24 08/30/2023 CBC WITH DIFFE RENTI AL/PL ATELE T monocytes 8 % not estab. Not Available [facility] ([facility]) [address] [facility], [place], [address], 08/30/2023 10:07:08 08/29/19 24 08/30/2023 CBC WITH DIFFE RENTI AL/PL ATELE T eos 2 % not estab. Not Available [facility] ([facility]) [address] [facility], [place], [address], 08/30/2023 10:07:08 08/29/19 24 08/30/2023 CBC WITH DIFFE RENTI AL/PL ATELE T basos 1 % not estab. Not Available [facility] ([facility]) [address] [place], [address], 08/30/2023 10:07:08 08/29/19 24 08/30/2023 CBC WITH DIFFE RENTI AL/PL ATELE T immature cells DOCUMENT CONTROL ASSOCIATE Not Available [facility] ([facility]) [address] [place], [address], 08/30/2023 10:07:08 08/29/19 24 08/30/2023 CBC WITH DIFFE RENTI AL/PL ATELE T neutrophils (absolute) 5.0 x10e3 /uL 1.4-7. 0 Not Available [facility] ([facility]) [address] [place], [address], 08/30/2023 10:07:08 08/29/19 24 08/30/2023 CBC WITH DIFFE RENTI AL/PL ATELE T lymphs (absolute) 1.9 x10e3 /uL 0.7-3. 1 Not Available [facility] ([facility]) [address] [place], [address], 08/30/2023 10:07:08 08/29/19 24 08/30/2023 CBC WITH DIFFE RENTI AL/PL ATELE T monocytes(ab solute) 0.7 x10e3 /uL 0.1-0. 9 Not Available [facility] ([facility]) [address] [place], [address], 08/30/2023 10:07:08 08/29/19 24 08/30/2023 CBC WITH DIFFE RENTI AL/PL ATELE T eos (absolute) 0.2 x10e3 /uL 0.0-0. 4 Not Available [facility] ([facility]) [address] [place], [address], 08/30/2023 10:07:08 08/29/19 24 08/30/2023 CBC WITH DIFFE RENTI AL/PL ATELE T baso (absolute) 0.1 x10e3 /uL 0.0-0. 2 Not Available [facility] ([facility]) [address], [place], [address], 08/30/2023 10:07:08 08/29/19 24 08/30/2023 CBC WITH DIFFE RENTI AL/PL ATELE T immature granulocytes 0 % not estab. Not Available [facility] ([facility]) [address] [facility], [place], [address], 08/30/2023 10:07:08 08/29/19 24 08/30/2023 CBC WITH DIFFE RENTI AL/PL ATELE T immature grans (abs) 0.0 x10e3 /uL 0.0-0. 1 Not Available [facility] ([facility]) [address], [place], [address], 08/30/2023 10:07:08 08/29/19 24 08/30/2023 CBC WITH DIFFE RENTI AL/PL ATELE T NRBC DOCUMENT CONTROL ASSOCIATE Not Available [facility] ([facility]) [address] [facility], [place], [address], 08/30/2023 10:07:08 08/29/19 24 08/30/2023 CBC WITH DIFFE RENTI AL/PL ATELE T hematology comments: DOCUMENT CONTROL ASSOCIATE Not Available [facility] ([facility]) [address] [facility], [place], [address], 08/30/2023 10:07:08 08/29/19 24 08/30/2023 HEPAT IC FUNCT ION PANEL (7) protein, total 6.9 g/dL 6.0-8. 5 Not Available [facility] ([facility]) [address] [facility], [place], [address], 08/30/2023 10:07:09 08/29/19 24 08/30/2023 HEPAT IC FUNCT ION PANEL (7) albumin 4.5 g/dL 4.1-5. 1 Not Available [facility] ([facility]) [address] [facility], [place], [address], 08/30/2023 10:07:09 08/29/19 24 08/30/2023 HEPAT IC FUNCT ION PANEL (7) bilirubin, total 0.5 mg/dL 0.0-1. 2 Not Available [facility] ([facility]) [address] [facility], [place], [address], 08/30/2023 10:07:09 08/29/19 24 08/30/2023 HEPAT IC FUNCT ION PANEL (7) bilirubin, direct 0.12 mg/dL 0.00-0 .40 Not Available [facility] ([facility]) [address] [facility], [place], [address], 08/30/2023 10:07:09 08/29/19 24 08/30/2023 HEPAT IC FUNCT ION PANEL (7) alkaline phosphatase 69 IU/L 44-121 Not Available [facility]) [address] [facility], [place], [address], 08/30/2023 10:07:09 08/29/19 24 08/30/2023 HEPAT IC FUNCT ION PANEL (7) AST (SGOT) 21 IU/L 0-40 Not Available [facility] ([facility]) [address] [facility] [place], [address], 08/30/2023 10:07:09 08/29/19 24 08/30/2023 HEPAT IC FUNCT ION PANEL (7) ALT (SGPT) 36 IU/L 0-44 Not Available [facility] ([facility]) [address] [facility], [place], [address], 08/30/2023 10:07:09 09/26/19 24 09/26/2023 JANET+L IPASE amylase 64 U/L 31-110 normal Not Available [facility] ([facility]) [address] [facility], [place], [address], 09/27/2023 06:08:32 09/26/19 24 09/26/2023 JANET+L IPASE lipase 37 U/L 13-78 normal Not Available [facility] ([facility]) [address] [facility], [place], [address], 09/27/2023 06:08:32 05/09/19 25 05/08/2024 HbA1c (hemo globi n A1c), blood HbA1C 5.2 Not Available [facility] (Outpatient) [address] [place] [address], [address], 05/08/2024 18:53:30 05/25/19 25 05/24/2024 CBC WITH AUTO DIFFE RENTI AL WBC 5.4 K/mcL 4.8-10 .8 Not Available [address], [address], 05/24/2024 09:14:50 05/25/19 25 05/24/2024 CBC WITH AUTO DIFFE RENTI AL RBC 5.60 M/mcL 4.50-5 .50 high Not Available [address], [address], 05/24/2024 09:14:50 05/25/19 25 05/24/2024 CBC WITH AUTO DIFFE RENTI AL hemoglobin 17.5 g/dL 13.5-1 7.5 Not Available [address], [address], 05/24/2024 09:14:50 05/25/19 25 05/24/2024 CBC WITH AUTO DIFFE RENTI AL hematocrit 49.7 % 42.0-5 4.0 Not Available [address], [address], 05/24/2024 09:14:50 05/25/19 25 05/24/2024 CBC WITH AUTO DIFFE RENTI AL MCV 88.8 fL 79.0-9 8.0 Not Available [address], [address], 05/24/2024 09:14:50 05/25/19 25 05/24/2024 CBC WITH AUTO DIFFE RENTI AL MCH 31.3 pcg 27.0-3 2.0 Not Available [address], [address], 05/24/2024 09:14:50 05/25/19 25 05/24/2024 CBC WITH AUTO DIFFE RENTI AL MCHC 35.2 g/dL 32.0-3 7.0 Not Available [address], [address], 05/24/2024 09:14:50 05/25/19 25 05/24/2024 CBC WITH AUTO DIFFE RENTI AL RDW 12.3 % 11.0-1 5.0 Not Available [address], [address], 05/24/2024 09:14:50 05/25/19 25 05/24/2024 CBC WITH AUTO DIFFE RENTI AL platelets 202 K/mcL 130-40 0 Not Available [address], [address], 05/24/2024 09:14:50 05/25/19 25 05/24/2024 CBC WITH AUTO DIFFE RENTI AL MPV 10.0 fL 7.0-11 .0 Not Available [address], [address], 05/24/2024 09:14:50 05/25/19 25 05/24/2024 CBC WITH AUTO DIFFE RENTI AL NRBC 0.0 % <1.0 Not Available [facility], [address], 05/24/2024 09:14:50 05/25/19 25 05/24/2024 CBC WITH AUTO DIFFE RENTI AL NRBC absolute 0.00 K/mcL <0.10 Not Available [address], [address], 05/24/2024 09:14:50 05/25/19 25 05/24/2024 CBC WITH AUTO DIFFE RENTI AL neutrophils relative 53.9 % Not Available [address], [address], 05/24/2024 09:14:50 05/25/19 25 05/24/2024 CBC WITH AUTO DIFFE RENTI AL lymphocytes relative 31.9 % Not Available [address], [address], 05/24/2024 09:14:50 05/25/19 25 05/24/2024 CBC WITH AUTO DIFFE RENTI AL monocytes relative 8.7 % Not Available [address], [address], 05/24/2024 09:14:50 05/25/1905/24/2024 CBC WITH AUTO DIFFE RENTI AL eosinophils relative 3.5 % Not Available [address], [address], 05/24/2024 09:14:50 05/25/1905/24/2024 CBC WITH AUTO DIFFE RENTI AL basophils relative 1.8 % Not Available [address], [address], 05/24/2024 09:14:50 05/25/19 25 05/24/2024 CBC WITH AUTO DIFFE RENTI AL immature granulocytes relative 0.2 % Not Available [address], [address], 05/24/2024 09:14:50 05/25/19 25 05/24/2024 CBC WITH AUTO DIFFE RENTI AL neutrophils absolute 2.92 K/mcL 1.50-7 .00 Not Available [address], [address], 05/24/2024 09:14:50 05/25/19 25 05/24/2024 CBC WITH AUTO DIFFE RENTI AL lymphocytes absolute 1.73 K/mcL 1.00-5 .00 Not Available [address], [address], 05/24/2024 09:14:50 05/25/19 25 05/24/2024 CBC WITH AUTO DIFFE RENTI AL monocytes absolute 0.47 K/mcL 0.20-1 .00 Not Available [address], [address], 05/24/2024 09:14:50 05/25/19 25 05/24/2024 CBC WITH AUTO DIFFE RENTI AL eosinophils absolute 0.19 K/mcL 0.00-0 .50 Not Available [address], [address], 05/24/2024 09:14:50 05/25/19 25 05/24/2024 CBC WITH AUTO DIFFE RENTI AL basophils absolute 0.10 K/mcL 0.00-0 .20 Not Available [address], [address], 05/24/2024 09:14:50 05/25/19 25 05/24/2024 CBC WITH AUTO DIFFE RENTI AL immature granulocytes absolute 0.01 K/mcL 0.00-0 .03 Not Available [address], [address], 05/24/2024 09:14:50 05/25/19 25 05/24/2024 CBC WITH AUTO DIFFE RENTI AL note See Report [facility], [address], [address] [place] [address], [place] [address] Not Available [address], [address], 05/24/2024 09:14:50 05/25/19 25 05/24/2024 COMPR EHENS DC METAB OLIC PANEL sodium 141 mmol/ L 133-14 5 Not Available [address], [address], 05/24/2024 09:49:58 05/25/19 25 05/24/2024 COMPR EHENS DC METAB OLIC PANEL potassium 3.9 mmol/ L 3.5-5. 5 Not Available [address], [address], 05/24/2024 09:49:58 05/25/19 25 05/24/2024 COMPR EHENS DC METAB OLIC PANEL chloride 106 mmol/ L 96-110 Not Available [address], [address], 05/24/2024 09:49:58 05/25/19 25 05/24/2024 COMPR EHENS DC METAB OLIC PANEL CO2 31 mmol/ L 21-32 Not Available [address], [address], 05/24/2024 09:49:58 05/25/19 25 05/24/2024 COMPR EHENS DC METAB OLIC PANEL anion gap 4 3-11 Not Available [address], [address], 05/24/2024 09:49:58 05/25/19 25 05/24/2024 COMPR EHENS DC METAB OLIC PANEL glucose 82 mg/dL 70-100 Not Available [address], [address], 05/24/2024 09:49:58 05/25/19 25 05/24/2024 COMPR EHENS DC METAB OLIC PANEL BUN 13 mg/dL 5-25 Not Available [address], [address], 05/24/2024 09:49:58 05/25/19 25 05/24/2024 COMPR EHENS DC METAB OLIC PANEL creatinine 1.11 mg/dL 0.70-1 .30 Not Available [address], [address], 05/24/2024 09:49:58 05/25/19 25 05/24/2024 COMPR EHENS DC METAB OLIC PANEL eGFR 88 mL/mi n/1.7 3m2 >=60 Calcu latio n based on the C hroni c Kidne y Disea se Epide miolo gy Colla borat ion (CKD- EPI) equat ion refit w [facility] t [facility] tment for race. Not Available [address], [address], 05/24/2024 09:49:58 05/25/19 25 05/24/2024 COMPR EHENS DC METAB OLIC PANEL BUN/creatini ne ratio 11.7 Not Available [address], [address], 05/24/2024 09:49:58 05/25/19 25 05/24/2024 COMPR EHENS DC METAB OLIC PANEL calcium 9.5 mg/dL 8.5-10 .5 Not Available [address], [address], 05/24/2024 09:49:58 05/25/19 25 05/24/2024 COMPR EHENS DC METAB OLIC PANEL AST (SGOT) 18 unit/ L 10-42 Not Available [address], [address], 05/24/2024 09:49:58 05/25/19 25 05/24/2024 COMPR EHENS DC METAB OLIC PANEL ALT (SGPT) 37 unit/ L 10-60 Not Available [address], [address], 05/24/2024 09:49:58 05/25/19 25 05/24/2024 COMPR EHENS DC METAB OLIC PANEL alkaline phosphatase 86 unit/ L 42-121 Not Available [address], [address], 05/24/2024 09:49:58 05/25/19 25 05/24/2024 COMPR EHENS DC METAB OLIC PANEL total protein 7.1 g/dL 6.0-8. 0 Not Available [address], [address], 05/24/2024 09:49:58 05/25/19 25 05/24/2024 COMPR EHENS DC METAB OLIC PANEL albumin 4.1 g/dL 3.2-5. 0 Not Available [address], [address], 05/24/2024 09:49:58 05/25/19 25 05/24/2024 COMPR EHENS DC METAB OLIC PANEL total bilirubin 1.0 mg/dL 0.0-1. 4 Not Available [address], [address], 05/24/2024 09:49:58 05/25/19 25 05/24/2024 COMPR EHENS DC METAB OLIC PANEL note See Report [facility], [address], [address], [place] [address] Not Available [address], [address], 05/24/2024 09:49:58 05/25/19 25 05/24/2024 AMYLA SE amylase 63 unit/ L 25-115 Not Available [address], [address], 05/24/2024 09:50:10 05/25/19 25 05/24/2024 AMYLA SE note See Report [facility], [address], [place], [facility] [place] [address] Not Available [address], [address], 05/24/2024 09:50:10 05/25/19 25 05/24/2024 IMMUN OGLOB ULIN IGA IgA 182 mg/dL 61-348 Not Available [address], [address], 05/24/2024 09:50:18 05/25/19 25 05/24/2024 IMMUN OGLOB ULIN IGA note See Report [facility], [address], [place], [facility] [place] [address] Not Available [address], [address], 05/24/2024 09:50:18 05/25/19 25 05/24/2024 THYRO ID STIMU LATIN G HORMO NE TSH 2.85 mciu/ mL 0.40-4 .00 Not Available [address], [address], 05/24/2024 10:50:42 05/25/19 25 05/24/2024 THYRO ID STIMU LATIN G HORMO NE note See Report [facility], [address], [place], [facility] [place] [address] Not Available [address], [address], 05/24/2024 10:50:42 05/25/19 25 05/24/2024 TISSU E TRANS GLUTA CHANCE E, IGA tissue transglutami nase Ab, IgA quant 2 unit/ mL <4 Not Available [address], [address], 05/29/2024 12:18:35 05/25/19 25 05/24/2024 TISSU E TRANS GLUTA CHANCE E, IGA tissue transglutami nase Ab, IgA Negati ve negati ve Not Available [address], [address], 05/29/2024 12:18:35 05/25/19 25 05/24/2024 TISSU E TRANS GLUTA CHANCE E, IGA note See Report [facility], [address], [place], [facility] [place] [address] Not Available [address], [address], 05/29/2024 12:18:35 09/17/19 25 09/16/2024 TISSU E EXAM .note See Note Origi nal Order ing Provi katie: ABEL MONTALVO [facility] - [facility] - [address], [place], [facility] [place] [address] Not Available [facility] [address] [facility] [place], [address], 09/18/2024 12:10:23 09/17/19 25 09/16/2024 TISSU E EXAM final diagnosis Termin al ileum, biopsy : - Small bowel mucos a with promi nent react dc appea ring lymph oid aggre merlos inclu ding scatt ered folli mae cente rs. - Altho ugh occas ional neutr ophil s are noted in the fatuma a propr ia, no defin itive intra epith elial neutr ophil s are ident ified (not diagn ostic of activ e enter itis) . - No granu lomat a and no dyspl gabi ident ified . Note: Addit ional level s were exami leonor. Lars vaca by Willie Hough MD on 025 at 12:07 PM Not Available [facility]/S Dept [address] [facility] [place], [address], 09/18/2024 12:10:23 09/17/1909/16/2024 TISSU E EXAM comment Repre senta tive slide (s) from this case have been prese nted at [facility] de[facility] tment al Danie baez on 09/17. Not Available [facility]/S Dept [address] [place] [address], [id number], 09/18/2024 12:10:23 09/17/1909/16/2024 TISSU E EXAM gross description A. Small Intest ine, Ileum, biopsi es termin al r/o ileiti s: Label ed biop sies ileum . Recei jabari in forma zoila are three soft, velve ty, ramos-p ink to red tissu e fragm ents rangi ng from 0.2 cm to 0.3 cm in great est diame ter, which are wrapp ed in paper and submi tted in toto in one casse tte, three piece s, multi ple level s. TS Not Available [facility]/S Dept [address] [place], [address], 09/18/2024 12:10:23 09/17/19 25 09/16/2024 TISSU E EXAM disclaimer Unles s other [place] speci fied, all tissu e is 10% NB forma zoila fixed and paraf fin embed ded. Not Available [facility]/S Dept [address] [place], [address], 09/18/2024 12:10:23 01/20/20 23 01/19/2023 XR, sinus es Sinuse s Comp Min 3 Views Reason : recurr ent maxill juan and fronta l sinus pain not helped by flonas e and clarti n; Clinic al Questi on(s): OBSTRU CTION COMPAR SHAHIDA: None FINDIN GS: Clear sinuse s. No fractu res. IMPRES BERNARDO: Normal . WSN: [id number] Orderi ng Physic fauzia: Tello Anaya Dictat ed By: Carlos Manuel Mir MD Dictat ed Date/T sharla: 10:03 a Review ed By: Carlos Manuel Mir MD Signed By: Carlos Manuel Mir MD Signed Date/T sharla: 10:03 am Transc ribed By: CSB Transc ribed Date/T sharla: 9:55 am Patien t Class: Outpat ient [email or web address] [facility] (Outpt Imaging) [address] [facility], [place], [address], 02/08/2023 07:49:39 12/22/19 24 12/22/2023 US, abdom en No observ ation record ed. [email or web address] [facility] [address] [facility], [place], [address], 12/29/2023 09:49:05 06/20/19 25 06/19/2024 CT, abdom en + pelvi s, w/ contr ast See Note [facility] , a member of [employer] [facility] t Name: KARTHIK BORJAS Date of : 1989 Reason for Exam: LUQ pain, uninte ntiona l wt loss Exam Date: 2024 [id number] EST Report Status : Final Orderi ng Provid er: ABEL TOWNSEND EIDaniela PCP: TELLO FORD PROCED URE: Contra st [...] Edit Transc ribed Date: 2024 09:[address], [address], 06/19/2024 12:37:02 09/17/19 25 colon oscop y proce dure (PROC ) No observ ation record ed. [facility] U/S Dept [address] [facility], [place], [address], 09/17/2024 07:54:48 Result Notes Documentation Provider Name and Address Organization Details Recorded Time Xr, Sinuses : Sinuses Comp Min 3 Views Reason: recurrent maxillary and frontal sinus pain not helped by flonase and clartin; Clinical Question(s): OBSTRUCTION COMPARISON: None FINDINGS: Clear sinuses. No fractures. IMPRESSION: Normal. WSN: [id number] Ordering Physician: Tello Frankel Dictated By: Carlos Manuel Schilling MD Dictated Date/Time: 01/19/23 10:03 a Reviewed By: Carlos Manuel Schilling MD Signed By: Carlos Manuel Schilling MD Signed Date/Time: 01/19/23 10:03 am Transcribed By: DANNY Transcribed Date/Time: 01/19/23 9:55 am [facility] Class[facility] 07:49:39 Ct, Abdomen + Pelvis, W/ Contrast : See Note [facility], a member of [employer] Patient Name: KARTHIK HOPE Date of : 1990 Reason for Exam: LUQ pain, unintentional wt loss Exam Date: 06/19/2024 [id number] EST Report Status: Final Ordering Provider: ABEL [...] Signed Date: 06/19/2024 10:07 ET Workstation ID: [id number] Transcribed By: Self Edit Transcribed Date: 06/19/2024 09:15 ET Tello Frankel MD [address] [address], [place], [address], [facility] 06/19/2024 12:37:02 Problems Name Problem SNOMED Code Status Onset Date Resolution Date Notes Provider Name and Address Organization Details Recorded Time Ex-smoke r 1278736 Active Not Available [facility] 3 09:53:21 Low back pain 237624540 Completed 03/30/2016 Tello Frankel MD [address] [address], [place], [address] , [facility] 0 22:47:36 Femoral acetabul ar impingem ent of right hip joint 68736820264 19987 Active [facility] 3 10:52:04 Chondrom alacia of right hip 26631160469 215077 Active [facility] 3 10:52:04 Acetabul ar labrum tear 038032697 Active [facility] 3 10:52:04 Acute sinusiti s 44153443 Completed 200708/27/2013 RESOLVED DATE: 07/24/19 08; RECORDED 07/24/19 08 4:45PM BY TELLO TOVAR MD, ANNOTATI ON/ADDEN DUM Not Available [facility] 4 13:33:14 General examinat ion of patient Completed 200708/27/2013 RECORDED 07/24/19 08 4:44PM BY TELLO TOVAR MD, ANNOTATI ON/ADDEN DUM Not Available [facility] 4 13:33:14 Pain in eye Completed 200708/27/2013 RESOLVED DATE: 07/24/19 08; RECORDED 07/24/19 08 4:44PM BY TELLO TOVAR MD, ANNOTATI ON/ADDEN DUM Not Available [facility] 4 13:33:15 Acute sinusiti s 24806192 Completed 200709/19/2013 RESOLVED DATE: 07/24/19 08; RECORDED 07/24/19 08 4:45PM BY TELLO TOVAR MD, ANNOTATI ON/ADDEN DUM Not Available [facility] 4 12:04:54 General examinat ion of patient Completed 200709/19/2013 RECORDED 07/24/19 08 4:44PM BY TELLO TOVAR MD, ANNOTATI ON/ADDEN DUM Not Available [facility] 4 12:04:54 Pain in eye Completed 200709/19/2013 RESOLVED DATE: 07/24/19 08; RECORDED 07/24/19 08 4:44PM BY TELLO TOVAR MD, ANNOTATI ON/ADDEN DUM Not Available [facility] 4 12:04:55 Acute sinusiti s 99334544 Completed 200709/20/2013 RESOLVED DATE: 07/24/19 08; RECORDED 07/24/19 08 4:45PM BY TELLO TOVAR MD, ANNOTATI ON/ADDEN DUM Not Available [facility] 4 03:29:59 General examinat ion of patient Completed 200709/20/2013 RECORDED 07/24/19 08 4:44PM BY TELLO TOVAR MD, ANNOTATI ON/ADDEN DUM Not Available [facility] 4 03:29:59 Pain in eye Completed 200709/20/2013 RESOLVED DATE: 07/24/19 08; RECORDED 07/24/19 08 4:44PM BY TELLO TOVAR MD, ANNOTATI ON/ADDEN DUM Not Available [facility] 4 03:29:59 Impacted cerumen 34946125 Completed 200808/27/2013 RECORDED 02/27/19 09 2:29PM BY RONI KIDD, ANNOTATI ON/ADDEN DUM Not Available [facility] 4 13:33:14 Impacted cerumen 32461500 Completed 200809/19/2013 RECORDED 02/27/19 09 2:29PM BY RONI KIDD, ANNOTATI ON/ADDEN DUM Not Available [facility] 4 12:04:54 Impacted cerumen 30151047 Completed 200809/20/2013 RECORDED 02/27/19 09 2:29PM BY RONI KIDD, ANNOTATI ON/ADDEN DUM Not Available [facility] 4 03:29:59 Acute pharyngi tis 882933581 Completed 200808/27/2013 RECORDED 05/27/19 09 1:08PM BY MERARY ORELLANAATI ON/ADDEN DUM Not Available [facility] 4 13:33:14 Infectiv e otitis externa 03874847 Completed 200808/27/2013 RECORDED 05/27/19 09 1:09PM BY MERARY ORELLANAATI ON/ADDEN DUM Not Available [facility] 4 13:33:15 Acute pharyngi tis 290820400 Completed 200809/19/2013 RECORDED 05/27/19 09 1:08PM BY MERARY ORELLANAATI ON/ADDEN DUM Not Available [facility] 4 12:04:54 Infectiv e otitis externa 99714176 Completed 200809/19/2013 RECORDED 05/27/19 09 1:09PM BY RAQUEL HALE, ANNOTATI ON/ADDEN DUM Not Available [facility] 4 12:04:55 Acute pharyngi tis 583653613 Completed 200809/20/2013 RECORDED 05/27/19 09 1:08PM BY RAQUEL HALE ANNOTATI ON/ADDEN DUM Not Available [facility] 4 03:29:59 Infectiv e otitis externa 16902291 Completed 200809/20/2013 RECORDED 05/27/19 09 1:09PM BY MERARY ORELLANAATI ON/ADDEN DUM Not Available [facility] 4 03:29:59 Malaise and fatigue 508795644 Completed 201108/27/2013 RECORDED 11/01/19 12 9:09AM BY RADHA MARTIN I ANNOTATI ON/ADDEN DUM Not Available [facility] 4 13:33:15 Migraine 33982133 Completed 201108/27/2013 RECORDED 11/01/19 12 9:09AM BY RADHA MARTIN I ANNOTATI ON/ADDEN DUM Tello Frankel MD [address], [place], [address] , [facility] 3 13:50:10 Verruca vulgaris 88164854 Completed 201108/27/2013 RECORDED 11/01/19 12 9:09AM BY RADHA MARTIN I ANNOTATI ON/ADDEN DUM Not Available [facility] 4 13:33:15 Malaise and fatigue 260166806 Completed 201109/19/2013 RECORDED 11/01/19 12 9:09AM BY RADHA MARTIN I ANNOTATI ON/ADDEN DUM Not Available [facility] 4 12:04:54 Migraine 12574437 Completed 201109/19/2013 RECORDED 11/01/19 12 9:09AM BY RADHA MARTIN I ANNOTATI ON/ADDEN DUM Tello Frankel MD [address], [place], [address] , [facility] 3 13:50:10 Verruca vulgaris 04391645 Completed 201109/19/2013 RECORDED 11/01/19 12 9:09AM BY RADHA MARTIN I ANNOTATI ON/ADDEN DUM Not Available [facility] 4 12:04:55 Malaise and fatigue 225122363 Completed 201109/20/2013 RECORDED 11/01/19 12 9:09AM BY RADHA MARTIN I ANNOTATI ON/ADDEN DUM Not Available [facility] 4 03:29:59 Migraine 43946428 Completed 201109/20/2013 RECORDED 11/01/19 12 9:09AM BY RADHA MARTIN I ANNOTATI ON/ADDEN DUM Tello Frankel MD [address] [facility] [address], [place], [address] , [facility] 3 13:50:10 Verruca vulgaris 05013747 Completed 201109/20/2013 RECORDED 11/01/19 12 9:09AM BY RADHA MARTIN I ANNOTATI ON/ADDEN DUM Not Available [facility] 4 03:30:00 Influenz a vaccine needed 86060279370 06 Completed 201108/27/2013 RECORDED 11/16/19 12 9:27AM BY DUSTIN ABRNES MA, OFFICE VISIT Not Available [facility] 4 13:33:14 Influenz a vaccine needed 37742510809 06 Completed 201109/19/2013 RECORDED 11/16/19 12 9:27AM BY DUSTIN BARNES MA, OFFICE VISIT Not Available [facility] 4 12:04:54 Influenz a vaccine needed 07061759895 06 Completed 201109/20/2013 RECORDED 11/16/19 12 9:27AM BY DUSTIN BARNES MA, OFFICE VISIT Not Available [facility] 4 03:29:59 Patient status finding 668386300 Completed 201208/27/2013 RECORDED 10/03/19 13 3:24PM BY TAB ENCISO MA, ANNOTATI ON/ADDEN DUM Not Available [facility] 4 13:33:14 Neck pain 03037739 Completed 201208/27/2013 IMPRESSI ON: A COMBO OF WORK LIFTING, WEIGHT LIFTING AND TENSION. TRY TO DECREASE ACTIVITY AND HE WILL TAKE AN NSAID; RECORDED 10/03/19 13 3:25PM BY TAB ENCISO MA, MERARYATI ON/ADDEN DUM Not Available [facility] 4 13:33:15 Contact dermatit is due to plants, except food Completed 201208/27/2013 IMPRESSI ON: HE WILL USE OTC MEDS; RECORDED 10/03/19 13 3:24PM BY TAB ENCISO MA, MERARYATI ON/ADDEN DUM Not Available [facility] 4 13:33:15 Patient status finding 627649745 Completed 201209/19/2013 RECORDED 10/03/19 13 3:24PM BY TAB ENCISO MA, MERARYATI ON/ADDEN DUM Not Available [facility] 4 12:04:54 Neck pain 29250211 Completed 201209/19/2013 IMPRESSI ON: A COMBO OF WORK LIFTING, WEIGHT LIFTING AND TENSION. TRY TO DECREASE ACTIVITY AND HE WILL TAKE AN NSAID; RECORDED 10/03/19 13 3:25PM BY TAB ENCISO MA, MERARYATI ON/ADDEN DUM Not Available [facility] 4 12:04:54 Contact dermatit is due to plants, except food Completed 201209/19/2013 IMPRESSI ON: HE WILL USE OTC MEDS; RECORDED 10/03/19 13 3:24PM BY TAB ENCISO MA, ANNOTATI ON/ADDEN DUM Not Available [facility] 4 12:04:55 Patient status finding 245922150 Completed 201209/20/2013 RECORDED 10/03/19 13 3:24PM BY TAB ENCISO MA, ANNOTATI ON/ADDEN DUM Not Available [facility] 4 03:29:59 Neck pain 06552273 Completed 201209/20/2013 IMPRESSI ON: A COMBO OF WORK LIFTING, WEIGHT LIFTING AND TENSION. TRY TO DECREASE ACTIVITY AND HE WILL TAKE AN NSAID; RECORDED 10/03/19 13 3:25PM BY TAB ENCISO MA, MESERET ON/ADDEN DUM Not Available [facility] 4 03:29:59 Contact dermatit is due to plants, except food Completed 201209/20/2013 SHERRIEI ON: HE WILL USE OTC MEDS; RECORDED 10/03/19 13 3:24PM BY TAB ENCISO MA, MESERET ON/ADDEN DUM Not Available [facility] 4 03:29:59 Adult health examinat ion Completed 201208/27/2013 RECORDED 11/29/19 13 1:49PM BY BERNA LOPEZ MA, MESERET ON/ADDEN DUM Not Available [facility] 4 13:33:14 Administ ration of diphther ia, pertussi s, and tetanus vaccine Completed 201208/27/2013 RECORDED 11/29/19 13 1:49PM BY BERNA LOPEZ MA, MESERET ON/ADDEN DUM Not Available [facility] 4 13:33:15 Adult health examinat ion Completed 201209/19/2013 RECORDED 11/29/19 13 1:49PM BY BERNA LOPEZ MA, MESERET ON/ADDEN DUM Not Available [facility] 4 12:04:54 Administ ration of diphther ia, pertussi s, and tetanus vaccine Completed 201209/19/2013 RECORDED 11/29/19 13 1:49PM BY BERNA LOPEZ MA, MESERET ON/ADDEN DUM Not Available [facility] 4 12:04:55 Adult health examinat ion Completed 201209/20/2013 RECORDED 11/29/19 13 1:49PM BY BERNA LOPEZ MA, MESERET ON/ADDEN DUM Not Available [facility] 4 03:29:59 Administ ration of diphther ia, pertussi s, and tetanus vaccine Completed 201209/20/2013 RECORDED 11/29/19 13 1:49PM BY BERNA LOPEZ MA, MESERET ON/ADDEN DUM Not Available [facility] 4 03:29:59 Knee pain Completed 201303/30/2016 RONI Baez, [facility] 7 10:41:02 Tobacco dependen ce syndrome 31929050 Completed 201308/27/2013 RECORDED 05/07/19 14 3:52PM BY DUSTIN BARNES MA ANNOTATI ON/ADDEN DUM Not Available [facility] 4 13:33:14 Tobacco user 882053589 Completed 201301/14/2014 RECORDED 05/07/19 14 4:03PM BY DUSTIN BARNES MA, OFFICE VISIT [facility] 4 09:41:30 History of clinical finding in subject 813933687 Completed 201301/14/2014 RECORDED 05/07/19 14 4:03PM BY DUSTIN BARNES MA, OFFICE VISIT [facility] 4 09:31:43 Hypothyr oidism 53915164 Completed 201308/27/2013 IMPRESSI ON: MILD ELEVATIO N SO WE WILL CHECK TPO WELL BEFORE DECIDING UPON A COURSE OF ACTION.; RECORDED 05/07/19 14 3:52PM BY DUSTIN BARNES MA, ANNOTATI ON/ADDEN DUM Not Available [facility] 4 13:33:14 Epidermo id cyst of skin 582910819 Completed 201303/30/2016 RONI Baez, [facility] 7 10:40:59 Tension- type headache 644823130 Active 2013 Not Available [facility] 3 09:53:21 Venkatesh de la Tourette 's syndrome 7892946 Active 2013 Not Available [facility] 3 09:53:21 Tobacco dependen ce syndrome 34691893 Completed 201309/19/2013 RECORDED 05/07/19 14 3:52PM BY DUSTIN BARNES MA, ANNOTATI ON/ADDEN DUM Not Available [facility] 4 12:04:54 Hypothyr oidism 78872302 Completed 201309/19/2013 IMPRESSI ON: MILD ELEVATIO N SO WE WILL CHECK TPO WELL BEFORE DECIDING UPON A COURSE OF ACTION.; RECORDED 05/07/19 14 3:52PM BY DUSTIN BARNES MA, ANNOTATI ON/ADDEN DUM Not Available [facility] 4 12:04:54 Tobacco dependen ce syndrome 30474817 Completed 201309/20/2013 RECORDED 05/07/19 14 3:52PM BY DUSTIN BARNES MA, ANNOTATI ON/ADDEN DUM Not Available [facility] 4 03:29:59 Hypothyr oidism 59399606 Completed 201309/20/2013 IMPRESSI ON: MILD ELEVATIO N SO WE WILL CHECK TPO WELL BEFORE DECIDING UPON A COURSE OF ACTION.; RECORDED 05/07/19 14 3:52PM BY DUSTIN BARNES MA, ANNOTATI ON/ADDEN DUM Not Available [facility] 4 03:29:59 Chondrom alacia of patella 47084740 Active 2016 Improved with PT Not Available [facility] 3 09:53:21 Pain of right hip joint 15815698504 9102 Active 2016 Possible labral tear; followed by ortho. Confirme d tear by MRI on right. Evaluate d for possible arthrosc opic surgery. Surgery done 2016. Good for 1 year. Now with repeat pain and may need addition al surgery. (2022). Will be schedule d for surgery with Dr Howe Revision surgery done by Dr Plasencia 06/30/22 Not Available [facility] 3 09:53:21 Ankle pain 553461764 Active 2017 Followed by sports medicine . Not Available [facility] 3 09:53:21 Plantar fasciiti s 918319396 Active 2018 right Not Available [facility] 3 09:53:21 Low back pain 774213368 Active 2019 Myofasci al; followed by sports med. Not Available [facility] 3 09:53:21 Tendinit is of flexor tendon of right hand 48690421041 055086 Active 2019 Not Available [facility] 3 09:53:21 Iliopsoa s bursitis of right hip 84681535587 10311 Active 2019 Not Available [facility] 3 09:53:21 Pain of left shoulder joint 95819496707 786833 Active 2019 Followed by DEVONTE. Seen by sports med and received a PRP (platele t-rich plasma injectio n) by Dr Gan September 2019. Not Available [facility] 3 09:53:21 Pain of multiple joints 94262673 Active 2022 Not Available [facility] 3 09:53:21 Migraine 63316012 Active 2022 RECORDED 11/01/19 12 9:09AM BY MESERET LAFLEUR ON/KAYLEE DUM Not Available [facility] 3 09:53:21 Anxiety 43940477 Active 2023 John Lynne PA-C [address] [facility] [address], [place], [address] , [facility] 4 13:36:44 Gastroes ophageal reflux disease without esophagi tis 514765612 Active 2023 Very difficul t to treat. Followed by Massimo CARLOS. Had an EGD 2023 a hiatal hernia and GERD w/o Barretts Tello Frankel MD [address], [place], [address] , [facility] 4 08:04:59 Problem Notes None recorded. 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 completed Celi Tanner [place] [facility] 12/06/2022 10:00:30 10/24/19 20 shoulder injection completed Zofia Ash [facility] 10/28/2019 10:41:49 09/16/[address] [facility] 09/18/2019 09:42:10 08/26/[address] [facility] 08/30/2019 09:28:17 08/26/[address] [facility] 08/30/2019 09:29:25 12/24/19 17 Orthopedic Surgery completed Sigrid Dowling [facility] 12/31/2016 09:00:33 Imaging Results None recorded. Procedure Notes None recorded. Medical Equipment None Reported. Allergies Allergen ID Allergen Name Allergen Category Reaction Reaction Severity Criticality Documentation Date Start Date Code Code System Note Provider Name and Address Organization Details Recorded Time 320 Product containin g penicilli n (product) medicatio n Not available Not available Not available 08/27/20132013 25793 8001 SNOMED Other react ions and sever ities : 'Unkn own'. Raquel Hale [place] [facility], [facility] 3 10:51:54 Medications Name Sig Start Date [...] 3.5 mg/mL-10, 000 unit/mL-1 % ear drops,aleja pension QID 11/15 completed RECORDED 11/16/19 12 9:23AM [...] 10 1:50PM BY TELLO TOVAR MD, ANNOTATI ON/ADDEN DUM; Not Available Not Available Not Available [...] Not Available Not Available Not Available Afluria 8070-6036 (PF) 45 mcg(15 mcg x 3)/0.5 mL intramusc ular syringe 03/30 completed Not Available Not Available Not Available Vitals Date Recorded Body height Body mass index (BMI) Body weight Oxygen saturation Heart rate Body temperature Systolic And Diastolic Provider Name and Address Organization Details Last Updated DateTime 4 185.42 cm 28.9 kg/m2 25529.7 3 g 99 % 93 /min 99.1 [degF] 129/82 mm[Hg] Raquel Hale [place] [facility] 4 13:00:48 Date Recorded Body height Body mass index (BMI) Body weight Heart rate Oxygen saturation Body temperature Systolic And Diastolic Provider Name and Address Organization Details Last Updated DateTime 4 185.42 cm 27.6 kg/m2 32637.8 1 g 79 /min 98 % 98.7 [degF] 104/69 mm[Hg] Nory mtz [place] [facility] 4 12:53:58 Date Recorded Body height Body mass index (BMI) Body weight Heart rate Oxygen saturation Body temperature Systolic And Diastolic Provider Name and Address Organization Details Last Updated DateTime 4 185.42 cm 27.2 kg/m2 76209.0 3 g 70 /min 98 % 98.2 [degF] 114/81 mm[Hg] Celi Tanner [place] [facility] 4 08:56:10 Date Recorded Body height Body mass index (BMI) Body weight Heart rate Oxygen saturation Body temperature Systolic And Diastolic Provider Name and Address Organization Details Last Updated DateTime 3 185.42 cm 28.5 kg/m2 85427.6 7 g 82 /min 99 % 98.5 [degF] 142/86 mm[Hg] Celi Tanner [place] [facility] 3 09:58:06 Date Recorded Body height Body mass index (BMI) Body weight Heart rate Oxygen saturation Body temperature Systolic And Diastolic Provider Name and Address Organization Details Last Updated DateTime 4 185.42 cm 26.4 kg/m2 07999.4 7 g 97 /min 98 % 99.2 [degF] 126/86 mm[Hg] Celi Tanner [place] [facility] 4 14:07:57 Social History Question Answer Notes LastModified by Organizat ion Details LastModified Time Tobacco Smoking Status Former Smoker Shahida Barraza, [facility] [address], [address], [facility] 12/02/2021 13:47:40 Do You Have An Advance Directive? No Information not available 12/02/2021 Is Blood Transfusion Acceptable In An Emergency? Yes [id number] Information not available 12/17/2019 What Is Your Level Of Caffeine Consumption? Moderate Coffee, Tea Information not available 12/02/2021 How Much Tobacco Do You Chew? 2-4/day Information not available 10/14/2020 What Type Of Diet Are You Following? REGULAR [id number] Information not available 12/17/2019 Which Illicit Or Recreational Drugs Have You Used? None [id number] Information not available 12/17/2019 When Did You [...] Have You Served In The ? No Information not available 03/30/2016 Have You Or Anyone In Your Household Had Any Of The Following Symptoms In The Last 14 Days: Sore Throat, Cough, Chills, Body Aches For Unknown Reasons, Shortness Of Breath For Unknown Reasons, Loss Of Smell, Loss Of Taste, Fever At Or Greater Than 100 Degrees Fahrenheit? No Information not available 08/18/2020 Are You Or Anyone In Your Household A Health Care Provider Or Emergency Responder? No [email or web address] Information not available 08/18/2020 To The Best Of Your Knowledge Have You Been In Close Proximity To Any Individual Who Tested Positive For COVID-19? No Information not available 08/18/2020 *AWV ONLY* Are [...] Gathering In The Last 10 Days? No [email or web address] Information not available 08/18/2020 What Was The [...] available 12/02/2021 Are You Sexually Active? No [id number] Information not available 12/17/2019 Smoke Alarm In [...] Many Years Have You Smoked Tobacco? 7 [id number] Information not available 12/17/2019 How Many Years [...] not available 10/14/2020 Are you able to walk independently without assistance or assistive devices? YESWOREST Information not available 12/02/2021 Are you able to care for yourself independently? Yes [id number] Information not available 12/17/2019 Do you or have you ever used e-cigarettes or vape? Never used electronic cigarettes Information not available 12/02/2021 What is your exercise level? Moderate daily- walking Information not available 12/02/2021 Mental Status None recorded. Family History Relationship Description Onset Age of this Age Resolved Age Notes LastModified by Organization Details LastModified Time Father General health good Not available 13:10:19 Mother Depressive disorder abolcun [...] 50 mcg/0.25mL dose 1 completed Not Available [facility] 01/06/2023 09:53:22 COVID-19, mRNA, LNP-S, PF, 100 mcg/0.5mL dose or 50 mcg/0.25mL dose 1 completed Not Available [facility] 01/06/2023 09:53:22 Influenza, split virus, quadrivalent, PF 2 completed Not Available [facility] 01/06/2023 09:53:22 Influenza, split virus, trivalent, PF 7 completed Not Available [facility] 01/06/2023 09:53:22 Influenza, split virus, trivalent, PF 6 completed Not Available [facility] 01/06/2023 09:53:22 Influenza, split virus, trivalent, PF 5 completed Not Available [facility] 01/06/2023 09:53:22 Influenza, split virus, quadrivalent, PF 8 completed Not Available [facility] 01/06/2023 09:53:22 COVID-19, mRNA, LNP-S, PF, 100 mcg/0.5mL dose or 50 mcg/0.25mL dose 1 completed Not Available [facility] 01/06/2023 09:53:22 IPV 9 completed Not Available [facility] 03/22/2023 12:52:32 DTaP 9 completed Not Available [facility] 03/22/2023 12:52:32 DTaP 9 completed Not Available [facility] 03/22/2023 12:52:32 IPV 9 completed Not Available [facility] 03/22/2023 12:52:32 MMR 0 completed Not Available [facility] 03/22/2023 12:52:32 IPV 0 completed Not Available [facility] 03/22/2023 12:52:32 DTaP 0 completed Not Available [facility] 03/22/2023 12:52:32 Hib (HbOC) 0 completed Not Available [facility] 03/22/2023 12:52:32 DTaP 1 completed Not Available [facility] 03/22/2023 12:52:32 DTaP 3 completed Not Available [facility] 03/22/2023 12:52:33 IPV 3 completed Not Available [facility] 03/22/2023 12:52:32 MMR 5 completed Not Available [facility] 03/22/2023 12:52:32 Hep B, adult 1 completed Not Available [facility] 03/22/2023 12:52:32 Hep B, adult 1 completed Not Available [facility] 03/22/2023 12:52:32 Hep B, adult 1 completed Not Available [facility] 03/22/2023 12:52:32 Td (adult), 2 Lf tetanus toxoid, preservative free, adsorbed 6 completed Not Available [facility] 03/22/2023 12:52:32 meningococcal MPSV4 6 completed Not Available [facility] 03/22/2023 12:52:32 Novel Vxealadpa-P2V5-14, all formulations 0 completed Not Available [facility] 03/22/2023 12:52:32 influenza, seasonal, intradermal, preservative free 2 completed Not Available [facility] 03/22/2023 12:52:33 Tdap 3 completed Not Available [facility] 03/22/2023 12:52:32 Influenza, split virus, quadrivalent, PF 2 completed VINAYAK Bales [address], [address], [facility] 12/02/2021 15:01:30 Influenza, split virus, quadrivalent, PF 3 completed Tello Frankel MD [address], [address], [facility] 12/06/2022 12:33:12 Td (adult), 2 Lf tetanus toxoid, preservative free, adsorbed 3 completed Tello Frankel MD [address] [place], [address], [facility] [place] 12/06/2022 12:33:12 Influenza, split virus, trivalent, PF 4 completed Tello Frankel MD [address] [facility] [address], [place], [address], [facility] [place] 12/13/2023 10:59:24 Past Encounters Encounter ID Performer Location Encounter Start Date Encounter Closed Date Diagnosis/Indication Diagnosis SNOMED-CT Code Diagnosis ICD10 Code Diagnosis IMO Codes Diagnosis Note [id number] auto[employer]ce [address] [facility] [place] [address] 08/30/2006 00:00:00 7615 autoE[employer] erce [address] [facility] [place] [address] 12/06/2006 00:00:00 7616 autoE[employer] erce [address] [facility] [place] [address] 12/11/2006 00:00:00 7617 autoEComm erce [address] [facility] [place] [address] 06/02/2007 00:00:00 [id number] autoEComm erce [address] [facility] [place] [address] 06/19/2007 00:00:00 7619 auto[employer] erce [address] [facility] [place] [address] 09/03/2007 00:00:00 [id number] autoE[employer] erce [address] [facility] [place] [address] 10/02/2007 00:00:00 7621 autoEComm erce [address] [facility] [place] [address] 02/28/2008 00:00:00 7622 autoEComm erce [address] [facility] [place] [address] 04/11/2008 00:00:00 7623 autoEComm erce [address] [facility] [place] [address] 05/26/2008 00:00:00 7624 autoEComm erce [address] [facility] [place], [place] [address] 03/20/2009 00:00:00 7625 autoEComm erce [address] [facility] [place], [place] [address] 11/01/2011 00:00:00 7626 autoEComm erce [address] [facility] [place], [place] [address] 11/16/2011 00:00:00 [id number] autoEComm erce [address] [facility] [place], [place] [address] 10/02/2012 00:00:00 [id number] autoE[employer] erce [address] [facility] [place], [place] [address] 11/28/2012 00:00:00 [id number] autoEComm erce [address] [facility] [place], [place] [address] 05/06/2013 00:00:00 [id number] VINAYAK Ho Main Office [address] [facility] [address] [place], [place] [address] 01/14/2014 09:16:53 01/14/2014 09:47:15 Low back pain [id number] call if worsening [id number] John Lynne PA-C Main Office [address] [facility] [address] [place], [place] [address] 03/30/2016 10:23:49 03/30/2016 11:58:03 Upper respiratory infection 12232894 J06.9 Cough 92050800 R05 prob. d/t postnasal drip [id number] Tello Frankel MD Main Office [address] [facility] [address] [place], [place] [address] 06/15/2016 10:40:29 06/15/2016 11:51:55 Adult health examination 787912818 Z00.00 UTD with immunizati ons Anterior knee pain 16507 3006 M25.561 Thigh pain 71331932 M79. 651 He will make an appointmen t with a PT in [facility] debbie Riddle de la Tourette's syndrome 9198978 F95.2 Followed by psychiatry [id number] Misael Gottlieb MD Main Office [address] [facility] [address] [place] [address] 06/05/2018 11:23:55 06/05/2018 12:31:34 Low back pain 531857837 M54.5 ? from compensati ng d/t R plantar fasciitis - ? 'out of alignment' / has leg length discrepanc y already in PT for plantar fasciitis - add back and hip pain to DX so PT can work on these issues too rec aleve, moist heat, hep and prn m. relaxer, and to f/u c his physiatris t if worse [id number] Ava Lynne PA-C Main Office [address] [facility] [address] [place] [address] 08/18/2020 08:36:08 08/18/2020 09:36:54 Thoracic back sprain 439750491 S23.3XXA Likely due to continued use and discontinu ation of PT. Recommend moist heat, Ibuprofen or Aleve as needed. Will prescribe muscle relaxant for pain. Patient will book appt with PT. Patient to return if worsens, loss of bowel or bladder control, difficulty ambulating . [id number] Tello Frankel MD Main Office [address] [facility] [address] [place] [address] 10/14/2020 14:16:41 10/14/2020 15:16:34 Adult health examination 751205526 Z00.00 UTD with immunizati ons. No need for blood work since not at high risk. Will begin screening labs at age 33. Venkatesh de la Tourette's syndrome 7166756 F95.2 Followed by psychiatry [id number] Yanci Baker MD Main Office [address] [facility] [address] [place] [address] 05/28/2021 08:12:16 05/31/2021 09:10:37 Migraine 85589716 G43.909 By history pt does seem to [...] are low dose an will follow closely [id number] Yanci Baker MD Main Office [address] [facility] [address] [place] [address] 07/28/2021 13:52:44 07/28/2021 14:50:43 Pain of hip region 90643312 M25.551 Sudden onset right hip pain, r/o labral tear, Pt to have MRI to assess, see orthopedic surgeon for evaluation , can try light PT. No heavy exercise of LE [id number] Tello Frankel MD Main Office [address] [facility] [address] [place] [address] 09/20/2021 13:46:47 09/20/2021 15:20:48 Palpitations 44164801 R00.2 new problem and worseningo nly occurs in the evening and associated dizzinessp ossible differenti als: hyperthyro idism, arrhythmia , anxiety, anemiaOrde red EKG which showed NSROrdered TSH and free [id number] CBC and CMPCounsel led on sleep hygeine and to reduce playing video games at nightCouns elled on meditation s and relaxation techniques if worsening will consult cardiology for possible holter Weight increased 6458503 00 R63.5 pt had a 11 pound increase since last visitmost likely due to reduced physical activity after hip injuryorde red lipid profile and hbA1c [id number] Tello Frankel MD Main Office [address] [facility] [address] [place] [address] 12/02/2021 13:09:51 12/02/2021 13:59:49 Adult health examination 272708450 Z00.00 UTD with immunizati ons. Had bloodwork in September, WBC was 16.4, he will repeat CBC as ordered by PCP. Venkatesh de la Tourette's syndrome 2351281 F95.2 he is not currently seeign psychiatry - waiting on appt. He does feel his tourette's has worsened and he would like to see neurology. Will refer. Needs infl uenza immunization 351096281 Z23 [id number] Misael Gottlieb MD Main Office [address] [place] [address] 03/17/2022 11:18:43 03/17/2022 12:15:44 Pain of multiple joints 18577937 M25.50 advised pt to walk along a line - check for leg length discrepanc y - if + then get heel cup for that side - hopefully will balance gait and alleviate some of his discomfort meanwhile, check labs and get rheum eval as well [id number] FELISA AYALA Main Office [address] [address] [place] [address] 10/26/2022 10:36:31 10/26/2022 11:07:10 Migraine without aura 82388611 G43.009 Tension-type headache 39 2065334 G44.209 [id number] FELISA AYALA Main Office [address] [place] [address] 11/17/2022 10:38:21 11/17/2022 11:16:11 Migraine without aura 26534088 G43.009 -Has had improvemen ts in frequency and severity of migraines since last visit 10/26. New prescripti on in contacts also aided in improvemen t of symptoms.- Is on sumatripta n 50mg daily prn Exposure to mold 1634253 067 1150093 Z77.120 -Removed black mold from bedroom about 2 weeks ago. Since has been overall feeling better.-Im provements in his sinus symptoms and migraines. -No respirator y issues.-Di scussed with pt to see if he could stay at his parents for 1-2 weeks to monitor any changes in symptoms-W ill have pt complete RAST mold panel [id number] Tello Frankel MD Main Office [address] [place] [address] 12/06/2022 09:39:55 12/06/2022 10:57:53 Adult health examination 156729656 Z00.00 UTD with immunizati ons and will take a flu vaccine today. Needs infl uenza immunization 811068265 Z23 Chronic re current sinusitis 660749733 J32.9 Will refer to ENT and if symptoms persist will then refer him to an intensivist. Hepatitis C screening 41 1452266 Z11.59 Requires a tetanus booster 840446519 Z23 Venkatesh de la Tourette's syndrome 5813427 F95.2 Followed by psychiatry in the past but this has not been a noticeable problem for him. Hyperlipidemia 58726970 E78.5 Migraine 16394707 G43.90 9 Only gets 1-2 episodes a year and these respond well to imitrex. Tobacco non-user 9004267 001 26438 Z13.89 Quit almost 10 years ago. [id number] Misael Gottlieb MD Main Office [address] [place] [address] 03/22/2023 12:50:21 03/22/2023 13:50:12 Benign paroxysmal positional vertigo 199610819 H81.10 will get vestibular therapy evalpt has no problems sleeping so do not believe prn meclizine would be of much helpwill give note for work at pt request - see below Anxiety 84077132 F41.9 severe on krystle, mild on phq - actually scored lower on both as compared to scores from 10.23 PE - cont seeing therapist wkly (has been for the past yr)cont med as dircont see psychiatri [facility] [id number] Tello Frankel MD Main Office [address] [place] [address], [place] [address] 08/29/2023 12:40:35 08/29/2023 13:17:40 Gastroesophageal reflux disease 070024620 K21.9 He will cut back on the tomatoes and garlic for now. Start prilosec and f/u in 3 weeks. [id number] Tello Frankel MD Main Office [address] [place] [address] 09/26/2023 08:50:05 09/26/2023 09:35:28 Upper abdominal pain 52362204 R10.10 Symptoms are c/w GERD but PPI not giving much help. An ulcer is a considerat ion and will get labs to look for a pancreatic cause. [id number] Tello Frankel MD Main Office [address] [facility] [address] [facility] [address] 12/12/2023 13:38:53 12/12/2023 14:46:03 Adult health examination 627310007 Z00.00 UTD with immunizati ons and will take a flu vaccine today. Needs infl uenza immunization 762836479 Z23 19 YEARS AND OLDER ONLY Gastroesop hageal reflux disease 953148687 K21.9 He was seen at [facility] and had an EGD in October 2023. He was placed on an M2Abmrcyb and continues with his PPI but his symptoms persist and he is unable to eat. He has a f/u GI appointmen t but not until another 5-6 weeks. I will call and speak to the PA who saw him. Venkatesh de la Tourette's syndrome 5689925 F95.2 Followed by psychiatry in the past but this has not been a noticeable problem for him. Migraine 98301648 G43.90 9 Only gets 1-2 episodes a year and these respond well to imitrex. Health Concerns Section Related Observation LastModified by Organization Detai ls LastModified Time None Recorded Concern Status LastModified by Organization Details LastModified Time None Recorded Advance Directives Directive N: Payers Insurance Date Sequence Insurance Name Policy Number Policy Flores Covered Member ID Flores Member ID Guarantor Name 05/03/2021 1 [employer] DANA ([facility] [place] [id number] Karthik Hope [id number] Karthik Hope 05/27/2024 1 [place] [facility] Karthik Hope [id number] Karthik Hope 03/30/2016 1 [employer] [id number] Sundar Thompson [id number] Karthik Hope Notes Date Note Type Note Provider Name and Address Organization Details Recorded Time 12/06/2022 text/html Generic HPI TemplateReported by PatientHe has been having trouble with recurrent sinus pain despite using a nasal steroid and an anti-histamine.Not currently working but actively looking.Continued right hip pain. Followed by ortho. Got some help from PT.ROS as noted in the HPI Tello Frankel MD [address] [address], [place], [address], [facility] 12/06/2022 13:59:44 03/22/2023 text/html Anxiety/Depressi onRepo rted by PatientHPIFor quality, patient reportsincreased anxiety. For context, patient reportsmajor life stressors. For severity, patient reportsdenies suicidal ideations. For associated symptoms, patient reportsdenies homicidal ideations. Pt has been dizzy on/off for the past year,this last episode started 5 days ago. Pt does have an apt in roughly 2 months. Pt also reports anxiety of late which makes the dizziness worse. 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 Worse with eating. Trying to cut back on acidic and usually eats healthy. No vomiting and no change in his bowels. Has been going on for 5-6 days. He eats a lot of tomatoes and garlic. Does not smoke or drink alcohol. Generally has a good diet. Tello Frankel MD [address] [address], [place], [address], [facility] 08/29/2023 13:20:41 09/26/2023 text/html ROS as noted in the HPI He received some help after a week [...] he had surgery. Tello Frankel MD [address] [facility] [address], [place], [address], [facility] 09/26/2023 09:39:25 12/12/2023 text/html Generic HPI TemplateReported by PatientNot currently working but actively looking.Continued right hip pain. Followed by ortho. Got some help from PT.Had the initial COVID vaccine series and one booster. No plans to get additional boosters.Had a tetanus update in 2022.Will get a flu vaccine today. ROS as noted in the HPI Tello Frankel MD [address] [facility] [address], [place], [address], [facility] [place] 12/13/2023 11:28:06
--- OUTSIDE RECORDS SUMMARY | 2025-01-02 17:40 | XMS_ITS | Encounter Summary ---
Author Organization [facility] Address [address] [facility] [address] [place] [address] Phone Care Team Providers Care Mutual Fund Accountant Name Role Phone Rakan Frankel MD Primary Care Provid er Encounter Details Date Type Department Care Team (Late st Contact Info) Description 05/25/2022 Procedure Pass [facility], Ct Scan - [address] [address] Social History Tobacco Use Types Packs/Day Years [...] on filedocumented in this encounter Care Teams Mutual Fund Accountant Relationship Specialty Start Date End Date Rakan Frankel MD [address] [address] PCP - General Internal Medicine 06/07/18 documented as of this encounter Additional Source Comments The information contained in this document represents components of the legal health record. It is not the complete legal health record.[facility]
--- OUTSIDE RECORDS SUMMARY | 2025-01-02 17:40 | XMS_ITS | Encounter Summary ---
Author Organization [facility] Address [address] [facility] [address] [place] [address] Phone Care Team Providers Care Evening Anchor Name Role Phone Rakan Frankel MD Primary Care Provid er Encounter Details Date Type Department Care Team (Latest Contact Info) Description 12/18/2023 Transcribe Orders Virtual Department [address] [place] [address] Rakan Frankel MD [address] [facility] [address] [place] [phone] Upper abdominal pain (Primary Dx) Social History Tobacco Use Types Packs/Day Years [...] documented as of this encounter Visit Diagnoses Diagnosis Upper abdominal pain- Primary documented in this encounter Care Teams Evening Anchor Relationship Specialty Start Date End Date Rakan Frankel MD [address] [address] PCP - General Internal Medicine 06/07/18 documented as of this encounter Additional Source Comments The information contained in this document represents components of the legal health record. It is not the complete legal health record.[facility]
--- OUTSIDE RECORDS SUMMARY | 2025-01-02 17:40 | XMS_ITS | Encounter Summary ---
Author Organization [facility] Address [email or web address] [address] Phone Care Team Providers Care Braid Folder Name Role Phone Rakan Frankel MD Primary Care Provid er Encounter Details Date Type Department Care Team (Late st Contact Info) Description 12/23/2022 Procedure Pass [facility], [address] [place] [address] Social History Tobacco Use Types Packs/Day Years [...] with a working camera? Not on file Sex and Gender Information Value Date Recorded Sex Assigned at Male 06/07/2018 11:00 AM EDT Legal Sex Male 9:07 PM EDT Gender Identity Male 06/07/2018 11:00 AM EDT Sexual Orientation Straight 06/07/2018 11 :00 AM EDT documented as of this encounter Plan of Treatment Not on file documented as of this encounter Visit Diagnoses Not on filedocumented in this encounter Care Teams Braid Folder Relationship Specialty Start Date End Date Rakan Frankel MD [address] [address] PCP - General Internal Medicine 06/07/18 documented as of this encounter Additional Source Comments The information contained in this document represents components of the legal health record. It is not the complete legal health record.[facility]
--- OUTSIDE RECORDS SUMMARY | 2025-01-02 17:40 | XMS_ITS | Clinical Summary ---
Author Organization [facility] Address [address] Social IQ (Social Influence Quotient) [facility] [address] [place] [address] Phone Care Team Providers Care Therapy Coordinator Name Role Phone Rakan Frankel MD Primary Care Provid er Allergies Active Allergy Reactions Criticality Noted Date Comments Penicillins Unknown 05/06/2013 Per mother, unsure reaction as or child. Ancef 06/30/2022 without incident Other reaction(s): Not available Medications FLUoxetine (PROZAC) 10 MG capsule Take 10 mg by mouth every morning. 07/08/2022 Active omeprazole (PRILOSEC) 20 MG tablet Take 20 mg by mouth daily. Active cloNIDine HCL (CATAPRES) 0.1 MG tablet Take 0.1 mg by mouth 2 (two) times a day. 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 Social History Tobacco Use Types Packs/Day Years Used Date Smoking Tobacco: Never Smokeless Tobacco: Former Tobacco Cessation:Counseling Given: Not Answered Alcohol Use Standard Drinks/Week Comments Not Currently [...] Orientation Straight 06/07/2018 11 :00 AM EDT Last Filed Vital Signs Vital Sign Reading Time Taken Comments Blood Pressure 105/74 11/01/2023 8:54 AM EDT Pulse 72 11/01/2023 8:54 AM EDT Temperature 35.9 C (96.7 F) 11/01/2023 8:39 AM EDT Respiratory Rate 17 11/01/2023 8:54 AM EDT Oxygen Saturation 97% 11/01/2023 8:54 AM EDT Inhaled Oxygen Concentration - - Weight 93.4 kg (206 lb) 11/01/2023 7:47 AM EDT Height 185.4 cm (6' 1 ) 11/01/2023 7:47 AM EDT Body Mass Index 27.18 11/01/2023 7:47 AM EDT Plan of Treatment Health Maintenance Due Date Last Done Comments LIPID PANEL 1988 DEPRESSION SCREENING 2000 HEPATITIS C SCREENING 02/04/2006 HIV ONE-TIME SCREENING (18-65 YEARS) 02/04/2006 INFLUENZA VACCINE (#1) 2024 , 12/02/2021, 05/13/2021, Additional history exists COVID-19 VACCINE ( season) 2024 01/28/2021, 07/07/2020, 06/08/2020 SCREENING FOR DIABETES 05/09/2027 05/08/2024 Adult Td,Tdap Booster 12/06/2032 12/06/2022 , 10/02/2012, 08/04/2005 HIB VACCINES Completed 10/26/1989 MENINGOCOCCAL VACCINES (ACWY) Aged Out 08/04/2005 No longer eligible based on patient's age to complete this topic SMOKING STATUS SCREENING (Once After 26 Yrs) Completed 11/01/2023 HEPATITIS A VACCINES Aged Out No long er eligible based on patient's age to complete this topic MENINGOCOCCAL VACCINES (B) Aged Out N o longer eligible based on patient's age to complete this topic PNEUMOCOCCAL VACCINES (0-49 years) Aged Out No longer eligible based on patient's age to complete this topic Medical Devices Implanted Type Area Mottler Operator Device Identifier Shelf Expiration Date Model / Serial / Lot [place] Suture 1.8mm Q Fix Mini Disposable - [id number] Implanted:Qty : 1 on 06/30/2022 by Matthew Howe MD at [facility] Right: [employer] [id number] 10/03/2022 [id number] / / [id number] [place] Suture 1.8mm Q Fix Mini Disposable - [id number] Implanted:Qty : 1 on 06/30/2022 by Matthew Howe MD at [facility] Right: [employer] [id number] 09/02/2022 [id number] / / [id number] [place] [address] [facility] [place] [address] [facility] Care Teams Therapy Coordinator Relationship Specialty Start Date End Date Rakan Frankel MD [address] [facility] [address] [place] [address] PCP - General Internal Medicine 06/07/18 Additional Source Comments The information contained in this document represents components of the legal health record. It is not the complete legal health record.[facility]
--- OUTSIDE RECORDS SUMMARY | 2025-01-02 17:40 | XMS_ITS | Encounter Summary ---
Author Organization [facility] Address [address] [place] [phone] Phone Care Team Providers Care Bed Spring Maker Name Role Phone Rakan Frankel MD Primary Care Provid er Encounter Details Date Type Department Care Team (Late st Contact Info) Description 05/08/2024 Transcribe Orders [facility] Phleb Main [address] [place] [address] Kassi Nails MD [address] [place] [address] Screening for prostate cancer (Primary Dx) Social History Tobacco Use Types [...] documented as of this encounter Results * PSA, free and total (05/15/2024 8:20 AM EDT) PSA, TOTAL 1.2 <=2.0 ng/mL [facility] MED/PATH [place] FREE PSA 0.5 ng/mL [facility] MED/PATH [place] [place] FREE/TOT PSA RATIO SEE NOTE ratio [facility] [place] Comment: (NOTE) Ratio not calculated because clinical usefulness is not defined except in range of total PSA 4.0-10.0 ng/mL. ADDITIONAL INFORMATION The testing method is an electrochemiluminescence assay manufactured by [employer] and performed on the Modular or Lauren system. Values obtained with different assay methods or kits may be different and cannot be used interchangeably. Test results cannot be interpreted as absolute evidence for the presence or absence of malignant disease. Blood 05/15/2024 8:20 AM EDT 05/15/2024 8:22 AM EDT us Kassi Nails MD LAB BLOOD BKR ORDERABL ES Final Result [facility] MED/PATH [address] [place] [address] [place] [address] * Carcinoembryonic antigen (CEA) (05/08/2024 2:00 PM EDT) CEA 2.2 0 - 3.4 ng/mL [facility] Comment: Test Methodology [id number] Patient results determined by assays using different manufacturers or methods may not be comparable. Blood 05/08/2024 2:00 PM EDT 05/08/2024 2:06 PM EDT Kassi Nails MD LAB BLOOD BKR ORDERABL ES Final Result Performing Organization Address [facility]/ZIP Co de Phone Number [address] [address] * CA-125 (05/08/2024 2:00 PM EDT) Pathologist [facility] CA 125 16.3 0 - 20 U/mL [facility] Comment: Test Methodology Ya [id number] Patient results determined by assays using different manufacturers or methods may not be comparable. Blood 05/08/2024 2:00 PM EDT 05/08/2024 2:06 PM EDT Kassi Nails MD LAB BLOOD BKR ORDERABL ES Final Result Performing Organization Address [facility] Co de Phone Number [address] [address] * (ABNORMAL) CA-15-3 (05/08/2024 2:00 PM EDT) Pathologist [facility] CANCER AG 15-3 30(H) <30, use not defined U/mL [facility] MED[facility]PATH [facility] Comment: (NOTE) ADDITIONAL INFORMATION The testing method is an electrochemiluminescence assay manufactured by [employer] and performed on the Modular or Lauren system. Values obtained with different assay methods or kits may be different and cannot be used interchangeably. Test results cannot be interpreted as absolute evidence for the presence or absence of malignant disease. Blood 05/08/2024 2:00 PM EDT 05/08/2024 2:05 PM EDT Kassi Nails MD LAB BLOOD BKR ORDERABL ES Final Result Performing Organization Address [facility]/ZIP Co de Phone Number [facility] MED/PATH [address] [place] [address] * CA-19-9 (05/08/2024 2:00 PM EDT) CA 19-9 <2 <35 U/mL [facility] Comment: Test Methodology [id number] Patient results determined by assays using different manufacturers or methods may not be comparable. Blood 05/08/2024 2:00 PM EDT 05/08/2024 2:06 PM EDT Kassi Nails MD LAB BLOOD BKR ORDERABL ES Final Result Performing Organization Address [facility] Co de Phone Number [address] [address] * AFP (non-maternal specimens) (05/08/2024 2:00 PM EDT) [facility] AFP (NON-MATERNAL) <1.8 <7.9 ng/mL [facility] Comment: Test Methodology [id number] Patient results determined by assays using different manufacturers or methods may not be comparable. Blood 05/08/2024 2:00 PM EDT 05/08/2024 2:06 PM EDT Kassi Nails MD LAB BLOOD BKR ORDERABL ES Final Result Performing Organization Address [facility] Co de Phone Number [address] [address] * PSA (screening) (05/08/2024 2:00 PM EDT) Pathologist [facility] PSA 1.21 0 - 4.00 ng/mL [facility] Comment: Test Methodology [id number] Patient results determined by assays using different manufacturers or methods may not be comparable. Blood 05/08/2024 2:00 PM EDT 05/08/2024 2:05 PM EDT us Kassi Nails MD LAB BLOOD BKR ORDERABL ES Final Result Performing Organization Address City/[facility]/ZIP Co de Phone Number [address] [address] * Hemoglobin A1c (05/08/2024 2:00 PM EDT) HEMOGLOBIN A1C 5.2 4.3 - 5.8 % [facility] Blood 05/08/2024 2:00 PM EDT 05/08/2024 2:05 PM EDT us Kassi Nails MD LAB BLOOD BKR ORDERABL ES Final Result Performing Organization Address City/[facility]/ZIP Co de Phone Number [address] [address] documented in this encounter Visit Diagnoses Diagnosis Screening for prostate cancer- Primary Special screening for malignant neoplasm of prostate documented in this encounter Care Teams Bed Spring Maker Relationship Specialty Start Date End Date Rakan Frankel MD [address] [phone] PCP - General Internal Medicine 06/07/18 documented as of this encounter Additional Source Comments The information contained in this document represents components of the legal health record. It is not the complete legal health record.[facility]
--- OUTSIDE RECORDS SUMMARY | 2025-01-02 17:40 | XMS_ITS | Clinical Summary ---
Author Organization [facility] [address] [facility] Address [address] [place] [address] Phone Care Team Providers Care Metal Organ Pipe Maker Name Role Phone Rakan Frankel MD Primary Care Provider [phone] Allergies Active Allergy Reactions Criticality Noted Date Comments Penicillins Unknown 05/06/2013 Per mother, unsure reaction as or child. Ancef 06/30/2022 without incident Other reaction(s): Not available Medications omeprazole (PriLOSEC) [address] capsule Take 1 capsule (40 mg total) by mouth 1 (one) time each day. 5 Active propranoloL (INDERAL) 20 mg tablet Take 1 tablet (20 mg total) by mouth 1 (one) time each day. for 90 days 5 Active famotidine (PEPCID) 40 mg tablet Take 1 tablet (40 mg total) by mouth at bedtime. 5 Active FLUoxetine (PROzac) 10 mg capsule Take 1 capsule (10 mg total) by mouth 1 (one) time each day. Active FLUoxetine (PROzac) 20 mg capsule Take 1 capsule (20 mg total) by mouth 1 (one) time each day. 4 Active meclizine (ANTIVERT) 25 mg tablet Take 1 tablet (25 mg total) by mouth 3 (three) times a day if needed for dizziness. Active sucralfate (CARAFATE) 1 gram tabletIndicatio ns:Gastroesopha geal reflux disease without esophagitis,Blo ating,Weight loss, non-intentional ,Epigastric pain Take 1 tablet (1 g total) by mouth 3 (three) times a day before meals. Take 1 hour before meals and at bedtime 90 each 5 05/25/[address] (ENTOCORT EC) 3 mg 24 hr capsuleIndicati ons:Ileitis Take 3 capsules (9 mg total) by mouth 1 (one) time each day in the morning. 90 each 11 5 08/06/19 26 Active Additional Information Patient not taking.Reported on 09/16/2024 bisacodyL (DULCOLAX) 5 mg EC tablet Take 2 tablets by mouth right before beginning bowel prep. See instructions provided by the office 2 tablet 5 Active polyethylene glycol (Golytely) 236-22.74-6.74 -5.86 gram solution Take 4L by mouth once for one dose. May substitue any PEG. Starting at 2PM the day before your procedure drink 1 8oz glasses at your own pace until you complete half of the gallon. Finish 2nd half of the gallon at 8PM. 4000 mL 5 Active Active Problems Problem Noted Date Diagnosed Date Generalized abdominal pain 08/05/2024 Chondromalacia of right hip 05/24/2024 Femoroacetabular impingement of right hip 2024 Bloating 05/24/2024 Weight loss 05/24/2024 Epigastric pain 05/24/2024 Gastroesophageal reflux disease without esophagi tis 01/31/2024 Overview (05/24/2024): Very difficult to treat. Followed by [facility]. 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 Overview (05/24/2024): Improved with PT Venkatesh de la Tourette's syndrome 05/06/2013 Hypothyroidism 05/06/2013 Overview (05/24/2024): IMPRESSION: MILD ELEVATION SO WE WILL CHECK TPO WELL BEFORE DECIDING UPON A COURSE OF ACTION.; RECORDED 05/06/2013 3:52PM BY DUSTIN BARNES MA, ANNOTATION/ADDENDUM Bipolar I disorder ([facility] V24, [facility] V28) Encounters Date Type Department Care Team Description 10/18/2024 Telephone Gastroenterology - [address] [address] Olman Rosario MD from Last 3 Months Surgical History Surgery Date Site/Laterality Comments HIP ARTHROSCOPY W/ LABRAL REPAIR Right Medical History Medical History Date Comments GERD (gastroesophageal reflux disease) Anxiety Venkatesh de la Tourette's disease Migraines Social History Tobacco Use Types Packs/Day Years Used Date Smoking Tobacco: Never Smokeless Tobacco: Never Tobacco Cessation:Counseling Given: Not Answered Alcohol Use Standard Drinks/Week Comments Not Currently 0 (1 standard drink = 0.6 oz pur e alcohol) Interpersonal Safety Answer Date Record ed Physical Abuse Unrecognized value 09/16/2024 Verbal Abuse Unrecognized value 09/16/2024 Sex and Gender Information Value Date Recorded Sex Assigned at Male 05/27/2024 11:15 AM EDT Legal Sex Male 12:40 PM EST Gender Identity Male 05/27/2024 11:15 AM EDT Sexual Orientation Straight 05/27/2024 11 :25 AM EDT Obstetrics History Last Filed Vital Signs Vital Sign Reading Time Taken Comments Blood Pressure 119/80 09/16/2024 3:37 PM EDT Pulse 77 09/16/2024 3:37 PM EDT Temperature 36.2 C (97.2 F) 09/16/2024 3:17 PM EDT Respiratory Rate 14 09/16/2024 3:37 PM EDT Oxygen Saturation 98% 09/16/2024 3:37 PM EDT Inhaled Oxygen Concentration - - Weight 83.9 kg (185 lb) 09/16/2024 2:23 PM EDT Height 188 cm (6' 2 ) 09/16/2024 2:23 PM EDT Body Mass Index 23.75 09/16/2024 2:23 PM EDT Plan of Treatment Upcoming Encounters Date Type Department Care Team (Late st Contact Info) Description 04/23/2025 10:00 AM EDT Office Visit Gastroenterology - [address] [address] Olman Rosario MD [address] [address] Health Maintenance Due Date Last Done Comments HPV Vaccines (1 - 3-dose SCDM series) 02/04/2015 Depression Screening 02/14/2024 Cholesterol Screening (Lipid Panel) 05/22/2024 HIV Screening 05/22/2024 Hepatitis C Screening 05/22/2024 Social Influencers of Health Screening 05/22/2024 COVID-19 Vaccine ( season) 2024 01/28/2021, 07/07/2020, 06/08/2020 Influenza Vaccine (#1) 2024 , 12/06/2022, 12/02/2021, Additional history exists DTaP,Tdap,and Td Vaccines (9 - Td or Tdap) 12/06/2032 12/06/2022, 10/02/2012, 08/04/2005, Additional history exists Colorectal Cancer Screening: Colonoscopy 09/16/2034 09/16/2024 RSV Immunization Adult Patients (1 - 1-dose 75+ series) 02/04/2063 HIB Vaccines Completed 10/26/1989 IPV Vaccines Completed 10/22/1992, 07/15, 1988, Additional history exists MMR Vaccines Completed 12/22/1994, 05/08/1989 Hepatitis B Vaccines Completed 12/04/2000, 07/03/2000, 06/02/2000 Meningococcal ACWY Vaccine Aged Out 08/04/2005 N o longer eligible based on patient's age to complete this topic Hepatitis A Vaccines Aged Out No long er eligible based on patient's age to complete this topic Meningococcal B Vaccine Aged Out No l onger eligible based on patient's age to complete this topic Pneumococcal Vaccine: Pediatrics (0 to 5 Years) and At-Risk Patients (6 to 49 Years) Aged Out No longer eligible based on patient's age to complete this topic RSV Immunization Patients Under 20 months Aged Out No longer eligible based on patient's age to complete this topic Varicella Vaccines Aged Out No longer eligible based on patient's age to complete this topic Procedures Procedure Name Priority Date/Time Associated Diagnosis Comments COLONOSCOPY Routine 09/16/2024 3:16 PM EDT Weight loss Generalized abdominal pain Epigastric pain from Last 3 Months or Most Recently Relevant to Health Maintenance Results * COLONOSCOPY Anesthesia - MAC; [facility] ENDOSCOPY (09/16/2024 3:16 PM EDT) Anatomical Region Laterality Modality Endoscopy 09/16/2024 2:56 PM EDT Impressions 09/16/2024 3:18 PM EDT - The entire examined colon is normal. - Mild inflammation was found in the ileum, rule out Crohn's disease. Biopsied. Recommendation: - Await pathology results. Narrative 09/16/2024 3:18 PM EDT [facility] Patient Name: Paulina Berman Procedure Date: 09/16/2024 2:56 PM Date of : 1990 Age: 34 Room: ROOM 15 Gender: Male Note Status: Finalized Attending MD: Olman Rosario MD, Procedure Date No Time: 09/16/2024 Procedure: Colonoscopy Indications: Generalized abdominal pain, Change in bowel habits, Weight loss, Abnormal capsule endoscopy Providers: Olmna Rosario MD Referring MD: Olman Rosario MD Medicines: Propofol per Anesthesia Complications: No immediate complications. Estimated Blood Loss: Estimated blood loss was minimal. Procedure: Pre-Anesthesia Assessment: - ASA Grade Assessment: II - A patient with mild systemic disease. After I obtained informed consent, the scope was passed under direct vision. Throughout the procedure, the patient's blood pressure, pulse, and oxygen saturations were monitored continuously.The Colonoscope was introduced through the anus and advanced to 10 cm into the ileum. The colonoscopy was performed without difficulty. The patient tolerated the procedure well. The quality of the bowel preparation was good. Findings: The perianal and digital rectal examinations were normal. The entire examined colon appeared normal. Patchy mild inflammation characterized by erosions, erythema and granularity was found in the terminal ileum. Biopsies were taken with a cold forceps for histology. Procedure Code(s): --- Professional --- 35318, Colonoscopy, flexible; with biopsy, single or multiple Diagnosis Code(s): --- Professional --- K52.9, Noninfective gastroenteritis and colitis, unspecified R10.84, Generalized abdominal pain R19.4, Change in bowel habit R63.4, Abnormal weight loss CPT copyright 2020 [employer]. All rights reserved. The codes documented in this report are preliminary and upon home performance consultant review may be revised to meet current compliance requirements. Olman Rosario MD 09/16/2024 3:18:31 PM This report has been signed electronically.Olman Rosario MD Number of Addenda: 0 Note Initiated On: 09/16/2024 2:56 PM Scope In: Scope Out: Endoscopy Department at [facility] - [address] [place] [phone] Procedure Note Olman Rosario MD - 09/16/2024 [facility] GI Patient Name: Paulina Berman Procedure Date: 09/16/2024 2:56 PM Date of : 1990 Age: 34 Room: ROOM 15 Gender: Male Note Status: Finalized Attending MD: Olman Rosario MD, Procedure Date No Time: 09/16/2024 Procedure: Colonoscopy Indications: Generalized abdominal pain, Change in bowel habits, Weight loss, Abnormal capsule endoscopy Providers: Olman Rosario MD Referring MD: Olman Rosario MD Medicines: Propofol per Anesthesia Complications: No immediate complications. Estimated Blood Loss: Estimated blood loss was minimal. Procedure: Pre-Anesthesia Assessment: - ASA Grade Assessment: II - A patient with mild systemic disease. After I obtained informed consent, the scope was passed under direct vision. Throughout theprocedure, the patient's blood pressure, pulse, and oxygen saturations were monitored continuously.The Colonoscope was introduced through the anus and advanced to 10 cm into the ileum. The colonoscopywas performed without difficulty. The patient tolerated the procedure well. The quality of the bowel preparation was good. Findings: The perianal and digital rectal examinations were normal. The entire examined colon appeared normal. Patchy mild inflammation characterized by erosions, erythema and granularity was found in the terminal ileum. Biopsies were taken with a cold forceps for histology. Procedure Code(s): --- Professional --- 81314, Colonoscopy, flexible; with biopsy, singleor multiple Diagnosis Code(s): --- Professional --- K52.9, Noninfective gastroenteritis and colitis, unspecified R10.84, Generalized abdominal pain R19.4, Change in bowel habit R63.4, Abnormal weight loss CPT copyright 2020 [employer]. All rights reserved. The codes documented in this report are preliminary and upon home performance consultant reviewmay be revised to meet current compliance requirements. Olman Rosario MD 09/16/2024 3:18:31 PM This report has been signed electronically.Olman Rosario MD Number of Addenda: 0 Note Initiated On: 09/16/2024 2:56 PM Scope In: Scope Out: Endoscopy Department at [facility] - [address] [place] [phone] IMPRESSION: - The entire examined colon is normal. - Mild inflammation was found in the ileum, ruleout Crohn's disease. Biopsied. Recommendation: - Await pathology results. Olman Rosario MD GI~PROCEDURE ORDERABLES Fin al Result from Last 3 Months or Most Recently Relevant to Health Maintenance Insurance MEDICAID - [place] Care Teams Metal Organ Pipe Maker Relationship Specialty Start Date End Date Rakan Frankel MD [address] [facility] [address] [place], [place] PCP - General Internal Medicine 06/05/12
--- OUTSIDE RECORDS SUMMARY | 2025-01-02 17:40 | XMS_ITS | Encounter Summary ---
Author Organization [facility] Address [address] [employer] [facility] [address] [place] [address] Phone Care Team Providers Care Last Remodeler Repairer Name Role Phone Rakan Frankel MD Primary Care Provid er Encounter Details Date Type Department Care Team (Late st Contact Info) Description 12/22/2023 Ancillary Orders Virtual Department [address] [place] [address] Rakan Frankel MD [address] [facility] [address] [place] [phone] Upper abdominal pain (Primary Dx) Social History [...] documented as of this encounter Results * US ABDOMEN LIMITED RIGHT UPPER QUADRANT (12/22/2023 7:52 AM EST) Anatomical Region Laterality Modality Abdomen Ultrasound 12/22/2023 8:36 AM EST Impressions 12/22/2023 8:37 AM EST 1. Normal gallbladder. 2. No biliary ductal dilatation. Narrative 12/22/2023 8:37 AM EST US ABDOMEN LIMITED RIGHT UPPER QUADRANT Referring clinician's provided indication for this examination in [facility]: Outside Radiology Order; abdomen pain TECHNIQUE: US Abdominal limited right upper quadrant. COMPARISON: None available FINDINGS: Liver: Right hepatic cyst (anechoic, increased transmission) measures 1.2 cm. Main Portal Vein: Patent with normal direction of flow. Gallbladder: No gallstones or gallbladder wall thickening. Zapata's Sign: Negative. Biliary: No intrahepatic or extrahepatic biliary ductal dilatation. The common bile duct measures 2 mm. Right Kidney: No stones or hydronephrosis. The right kidney measures 11 cm. Procedure Note Willie Maldonado MD - 12/22/2023 US ABDOMEN LIMITED RIGHT UPPER QUADRANT Referring clinician's provided indication for this examination in [facility]:Outside Radiology Order; abdomen pain TECHNIQUE: US Abdominal limited right upper quadrant. COMPARISON: None available FINDINGS: Liver: Right hepatic cyst (anechoic, increased transmission) measures 1.2cm. Main Portal Vein: Patent with normal direction of flow. Gallbladder: No gallstones or gallbladder wall thickening. Zapata's Sign: Negative. Biliary: No intrahepatic or extrahepatic biliary ductal dilatation. The common bile duct measures 2 mm. Right Kidney: No stones or hydronephrosis. The right kidney measures 11cm. IMPRESSION: 1. Normal gallbladder. 2. No biliary ductal dilatation. us Rakan Frankel MD IMG US ABDOMEN Leonor l Result documented in this encounter Visit Diagnoses Diagnosis Upper abdominal pain Upper abdominal pain- Primary documented in this encounter Care Teams Last Remodeler Repairer Relationship Specialty Start Date End Date Rakan Frankel MD [address] [phone] PCP - General Internal Medicine 06/07/18 documented as of this encounter Additional Source Comments The information contained in this document represents components of the legal health record. It is not the complete legal health record.[facility]
--- OUTSIDE RECORDS SUMMARY | 2025-01-02 17:40 | XMS_ITS | Encounter Summary ---
Author Organization [facility] Address [address] [place] [address] Care Team Providers Care Transport Rn Name Role Phone Rakan Frankel MD Primary Care Provider +- [phone] Reason for Visit * Reason Comments Anemia Encounter Details Date Type Department Care Team ([facility] Contact Info) Description 07/30/2024 Billing Patient Not Present Gastroenterology - 299 [place] [address] [phone] Shanique Kirkland [place] Social History Tobacco Use [...] as of this encounter Plan of Treatment Upcoming Encounters Date Type Department Care Team (Late Contact Info) Description 04/23/2025 10:00 AM EDT Office Visit Gastroenterology - 299 [place] [address] [phone] Olman Rosario MD [address] [phone] documented as of this encounter Visit Diagnoses Not on filedocumented in this encounter Care Teams Transport Rn Relationship Specialty Start Date End Date Rakan Frankel MD [address] PCP - General Internal Medicine 06/05/12 documented as of this encounter
--- OUTSIDE RECORDS SUMMARY | 2025-01-02 17:40 | XMS_ITS | Encounter Summary ---
Author Organization [facility] Address [address] [address] Phone Care Team Providers Care Slot Floor Attendant Name Role Phone Rakan Frankel MD Primary Care Provid er Encounter Details Date Type Department Care Team ([facility] st Contact Info) Description 06/30/2022 Procedure Pass [facility] @ [address] [phone] Social History Tobacco Use Types Packs/Day Years Used Date Smoking Tobacco: Never Smokeless Tobacco: Former Alcohol Use Standard Drinks/Week Comments Yes 0 (1 standard drink = 0.6 oz pur e alcohol) Education Answer Date Recorded Are you interested in more education? Not on shai e 06/10/2022 Are you concerned about learning? Not on file 06/10/2022 No 06/10/2022 No 06/10/2022 Sex and Gender Information Value Date Recorded Sex Assigned at Male 06/07/2018 11:00 AM EDT Legal Sex Male 9:07 PM EDT Gender Identity Male 06/07/2018 11:00 AM EDT Sexual Orientation Straight 06/07/2018 11 :00 AM EDT documented as of this encounter Plan of Treatment Not on file documented as of this encounter Visit Diagnoses Not on filedocumented in this encounter Care Teams Slot Floor Attendant Relationship Specialty Start Date End Date Rakan Frankel MD [address] [phone] PCP - General Internal Medicine 06/07/18 documented as of this encounter Additional Source Comments The information contained in this document represents components of the legal health record. It is not the complete legal health record.[facility]
== END 2025-01-02 11:39 | disposition home or self-care (01) ==
PROVIDERS: PCP Internal Medicine; Referring Provider Internal Medicine; Visit Provider Registered Nurse
DX: G43.109 Migraine with aura, not intractable, without status migrainosus (principal); F95.2 Tourette's disorder
CPT/HCPCS: 99214

== ENCOUNTER → 2025-01-02 11:26 | Outpatient (BNVA) | payer MEDICAID, SELFPAY | PROVIDERS: PCP Internal Medicine; Referring Provider Internal Medicine; Visit Provider Registered Nurse | DX: G43.109 Migraine with aura, not intractable, without status migrainosus (principal); F95.2 Tourette's disorder | CPT/HCPCS: 99212 ==